=== PATIENT | female | born 1955 | race Caucasian/White ===

== ENCOUNTER → 2017-07-09 | Outpatient (CLI) | payer BC | END | disposition home or self-care (01) | LOC: C.RDSM 14:29 | PROVIDERS: ATTEND Family Medicine Sports Medicine | DX: M25.561 Pain in right knee (principal) ==

== ENCOUNTER → 2017-09-10 | Outpatient (CLI) | payer BC ==
--- NOTE | 2017-09-10 15:50 | DIAGNOSTIC IMAGING REPORT ---
RIGHT LOWER EXTREMITY VENOUS DOPPLER HISTORY: R LEG PAIN/SWELLING COMPARISON STUDY: None. FINDINGS: There is normal compressibility, flow, and augmentation within the right lower extremity deep venous system. IMPRESSION: No DVT within the right lower extremity Electronically signed by: Albaro Nichols M.D. 09/10/2017 3:49 PM Dictated Date/Time: 09/10/2017 3:49 PM
== END | disposition home or self-care (01) ==
LOC: C.ULTR 15:16
PROVIDERS: ATTEND Family Medicine Sports Medicine
DX: M79.604 Pain in right leg (principal)

== ENCOUNTER → 2017-09-17 | Outpatient (CLI) | payer BC ==
--- NOTE | 2017-09-17 15:27 | DIAGNOSTIC IMAGING REPORT ---
RIGHT KNEE MRI HISTORY: RT KNEE PAIN,SWELLING COMPARISON STUDY: Right knee 07/09/2017. TECHNIQUE: Multiplanar multisequence MRI of the right knee was performed according to standard department protocol without the use of contrast. FINDINGS: Menisci: The lateral meniscus is intact. Complex full-thickness tear seen within the posterior horn of the medial meniscus. The medial meniscus is slightly extruded from the joint space. Degeneration without tear within the body of the medial meniscus. Ligaments: The anterior and posterior cruciate ligaments are intact. The medial and lateral collateral ligaments are normal in appearance. Extensor mechanism: The quadriceps tendon and patellar ligament are intact. Articular cartilage and bone: No fracture or dislocation. Tricompartmental marginal osteophytes. Large area of full-thickness cartilage loss seen within the central weightbearing portion of the medial femoral condyle and medial tibial plateau. Focal cartilage fissure seen within the central weightbearing portion of the lateral femoral condyle. Cartilage fraying with greater than 50% cartilage thinning within the medial patellar facet and median ridge of the patella. Subchondral marrow edema within the medial femoral condyle due to the long-standing degenerative change. Joint effusion: Moderate. Soft tissues: Anterior subcutaneous edema within the knee. There is also edema adjacent to the vastus medialis muscle. IMPRESSION: 1. Focal defect/complex tear within the posterior horn of the medial meniscus. 2. Tricompartmental osteoarthritis as described above most pronounced within the medial compartment where there is full-thickness cartilage loss. 3. Moderate joint effusion. 4. No fracture or dislocation. Electronically signed by: Albaro Nichols M.D. 09/17/2017 3:25 PM Dictated Date/Time: 09/17/2017 3:19 PM
== END | disposition home or self-care (01) ==
LOC: C.MRI 14:18
PROVIDERS: ATTEND Family Medicine Sports Medicine
DX: S83.241A Other tear of medial meniscus, current injury, right knee, initial encounter (principal); X58.XXXA Exposure to other specified factors, initial encounter; M17.11 Unilateral primary osteoarthritis, right knee

== ENCOUNTER 2020-11-11 08:42 | Observation (INO) ==
--- NOTE | 2020-10-18 14:08 | PAT Medication Instructions ---
Medication Instructions Date of Service October 18, 2020 Home Medications atorvastatin 20 mg PO HS esomeprazole magnesium 20 mg PO QAM fluoxetine 80 mg PO QAM levothyroxine 50 mcg PO QAM losartan 100 mg PO QAM meloxicam 15 mg PO HS multivitamin 1 tab PO QAM triamterene-hydrochlorothiazid 1 tab PO HS ASK your surgeon for instructions meloxicam 15 mg PO HS DO NOT take the morning of surgery losartan 100 mg PO QAM multivitamin 1 tab PO QAM Take morning of surgery With a small sip of water, OTHERWISE NOTHING TO EAT OR DRINK AFTER MIDNIGHT: esomeprazole magnesium 20 mg PO QAM fluoxetine 80 mg PO QAM levothyroxine 50 mcg PO QAM Take evening before surgery atorvastatin 20 mg PO HS triamterene-hydrochlorothiazid 1 tab PO HS Other Notes If you have any questions please call us at [phone] or [phone] or [phone] or [phone]
--- NOTE | 2020-10-19 15:57 | Anesthesiology Consultation ---
Date of Service October 19, 2020 Assessment & Plan (1) Encounter for pre-operative examination: COVID Status: As of 10/19 assessment, patient denies travel to endemic area, known exposure/sick contacts, or symptoms of COVID19. Patient advised to adhere to social distancing guidelines, wear a mask in public and avoid large crowds or unnecessary travel in the 2 weeks leading up to surgery. Preoperative COVID19 testing to be completed prior to surgery per surgeon's arrangements. Pat ient encouraged to be extra cautious/conscientious with COVID precautions between COVID testing and surgery. Patient is vaccinated with J+J vaccine. Possibly new DM on pre-op labs (A1C 6.5%). Sent to PCP for their review, patient being seen for clearance 10/21. Chart Review Chart Review: Acceptable Risk for Surgery (pending surgeon-ordered pcp clearance 10/21) and Patient seen in Pre Admission Testing Teaching & Discussion Instructed NPO after midnight before surgery, except medications with 15 cc of water. Medication instructions provided according to the PAT guidelines. History Surgery Operation Date: 11/11/20 07:00 Proposed Procedures p Right Total Knee Arthroplasty - Hugh Coy MD Height/Weight Height: 5 ft 2 in Weight: 84.6 kg Allergies Allergy/AdvReac Type Severity Reaction Status Date / Time nickel Allergy Rash Verified 10/18/20 11:34 No Known Drug Allergies Allergy Verified 10/18/20 11:34 Medications Home Medications Medication Instructions Recorded Confirmed Last Taken atorvastatin 20 mg PO HS 10/18/20 10/18/20 Unknown esomeprazole magnesium 20 mg PO QAM 10/18/20 10/18/20 Unknown fluoxetine 80 mg PO QAM 10/18/20 10/18/20 Unknown levothyroxine 50 mcg PO QAM 10/18/20 10/18/20 Unknown losartan 100 mg PO QAM 10/18/20 10/18/20 Unknown meloxicam 15 mg PO HS 10/18/20 10/18/20 Unknown multivitamin 1 tab PO QAM 10/18/20 10/18/20 Unknown triamterene-hydrochlorothiazid 1 tab PO HS 10/18/20 10/18/20 Unknown Past Medical History Medical History (Updated 10/20/20 @ 16:58 by Js Sandoval) Anxiety and depression Cardiac murmur Pt reports heard a long time ago, no echo or unit secy. Very faint systolic murmur noted at PAT. Diabetes No reported hx, but A1C noted to be 6.5% on per-op labs. Sent to PCP for their review. GERD (gastroesophageal reflux disease) HLD (hyperlipidemia) HTN (hypertension) Hypothyroidism Osteoarthritis Sleep apnea CPAP, reports using it ~ 50% of the time Exercise / Class Metabolic Activity II 4-5 Yardwork/Stairs/Walk up hill (Denies CP or SOB with 1 FOS) Past Family History Family History Father Diabetes Other No family history of adverse response to anesthesia Past Surgical History Surgical History History of bladder surgery History of x 2 History of colonoscopy History of esophagogastroduodenoscopy (EGD) History of hysterectomy History of tooth extraction Past Anesthesia History No Hx of Anesthesia Complications and No Family Hx of Anesthesia Complications History of PONV No Hx of PONV and No Hx of Motion Sickness Social History Smoking Status: Never smoker Do You Dip or Chew Tobacco: No Hx Alcohol Use: No Hx Substance Use: No substance use type: does not use Review of Systems Pt denies any recent chest pain, shortness of breath, palpitations, cough, fever, URI, or uncontrolled acid reflux (controlled with PPI). Physical Exam Vital Signs BP: 149/77 P: 83bpm SPO2: 95% RA T: 98.5 F R: 16 ENMT Mouth: + dentures and + edentulous Thyromental Distance: > or= 3.5 Finger Breadths Mallampati Class: II Neck + short neck; neck extension not limited Respiratory normal respiratory effort, lungs clear to auscultation Cardiovascular Rate/Rhythm: regular rate and regular rhythm Heart Sounds: + murmur (<I/ systolic) Lab Results Anesthesia Preop Results Results Anesthesia Widget: WBC 5.44 K/uL (4.8-10.8) 10/19/20 Hgb 11.0 g/dL (12.0-16.0) L 10/19/20 Hct 34.7 % (37-47) L 10/19/20 Plt 184 K/uL (130-400) 10/19/20 Na 138 mmol/L (136-145) 10/19/20 K 4.5 mmol/L (3.5-5.1) 10/19/20 Cl 105 mmol/L (98-107) 10/19/20 CO2 30 mmol/L (21-32) 10/19/20 BUN 36 mg/dl (7-18) H 10/19/20 Creat 1.27 mg/dl (0.6-1.2) H 10/19/20 Glucose Level 92 mg/dl (70-99) 10/19/20 PT 10.0 Seconds (9.0-12.0) 10/19/20 INR 1.0 (0.9-1.1) 10/19/20 HA1c 6.5 % (4.5-5.6) H 10/19/20 Urine Color Yellow 10/19/20 Urine Appearance Clear (Clear) 10/19/20 Urine pH 5.5 (4.5-7.5) 10/19/20 Urine Specific [place] 1.020 (1.000-1.030) 10/19/20 Urine Protein Negative (Negative) 10/19/20 Urine Glucose (UA) Negative (Negative) 10/19/20 Urine Ketones Negative (Negative) 10/19/20 Urine Blood Negative (Negative) 10/19/20 Urine Nitrite Negative (Negative) 10/19/20 Urine Bilirubin Negative (Negative) 10/19/20 Urine Urobilinogen Negative (Negative) 10/19/20 Urine Leukocyte Esterase 1+ (Negative) H 10/19/20 Blood Type A Positive 10/19/20 Antibody Screen NEGATIVE 10/19/20 Testing Electrocardiogram Date: 10/19/20 Findings: + NSR @ (75bpm)
--- NOTE | 2020-10-20 14:30 | History & Physical Report ---
Date of Service October 20, 2020 Assessment & Plan Admission and Anticipated Discharge Date Admission Date: PRE-OP Diagnosis: Right knee osteoarthritis Planned Procedure: Right total knee arthroplasty Plan: Patient is scheduled to undergo this procedure at [facility] with Dr. Hugh Coy on November 11, 2020. Risks and complications of the procedure such as: Infection, bleeding, pain, scarring, nerve blood vessel damage, weakness, wound problems, stiffness, incomplete relief of symptoms, hardware failure, hardware loosening, wear, fracture, tendon or ligament injury, blood clots, embolism, heart attack, stroke and were explained the patient at her visit on September [address] Coy. Informed consent to perform the procedure was obtained. Patient also understands risks of proceeding with surgical invention during the COVID-19 pandemic. Currently she is asymptomatic and understands she will need to be tested 2 to 3 days prior to the surgery. We will need to obtain preoperative medical clearance from the patient's primary c are provider Angelina Locke PA-C. Patient states she has an appointment with her this coming . Patient is scheduled to meet with anesthesia at the hospital later this morning and while there she will obtain a CBC with differential complete metabolic panel PT/INR blood type and screen urinalysis, urine culture and sensitivity, hemoglobin A1c, EKG and a nasal culture for MRSA. During today's visit we reviewed the total knee arthroplasty packet. I provided the patient with orders to obtain a walker, raised toilet seat, shower chair. I advised her that she will be in a knee immobilizer for the first 2 days postoperatively. I provided her with paperwork to obtain a handicap placard for her vehicle. We discussed the lectures offered by [facility] in regards to joint replacement surgery that are held via zoom. We talked about antibiotic use prior to dental procedures after joint placement surgery. I advised the patient she will be discharged from the hospital on an opioid analgesic, and anti-inflammatory and we will have her take baby aspirin twice daily for blood clot prevention. She states that she will most likely do in-home physical therapy for the first 2 weeks postoperatively. Patient is scheduled to follow-up with me on November 24 at 11:15 AM for 2-week postoperative follow-up. Patient also advised me that prior to her departure from the clinic that she has a nickel allergy so we will have to make accommodations to use [employer] total knee hardware on this patient. Patient verbalized understanding of all information provided during today's visit. She thanks for the care that she received. If she has questions or concerns prior to her surgery, she will contact clinic. History of Present Illness Chief Complaint: Chief Complaint: Right knee pain Primary Care Provider: Angelina Locke PA-C History of Present Illness (including history relevant to procedure): This 65-year-old female presents the clinic today for preoperative history and physical. Patient was actually had her on the schedule for a knee replacement back in April of 2019. After the coronavirus pandemic onset, however, this was canceled and she has been essentially managing on her own since then. She has been taking meloxicam once a day. She says this helps. However, the knee has progressively worsened. She has continued to wear knee braces on both knees. She feels the pain diffusely in the right knee and more localized to the medial aspect of the left knee. She says the right knee is worse than the left. She is interested in now having her right knee replaced. Review Of Systems: A 14 point review of systems performed and is unremarkable except for those things stated in the HPI and past medical history. Past Medical History: Problems: Pre-op exam Left knee pain Loss of weight Fatigue Pes anserine bursitis Osteoarthritis of right knee Tear of medial meniscus of knee Effusion, right knee Pain and swelling of right lower leg Knee pain, right Pain of right patellofemoral joint Rectocele Cystourethrocele Vitamin D deficiency Peripheral edema Dyspareunia in female Urge incontinence of urine Restless leg syndrome JHOAN on CPAP Anxiety and depression GERD (gastroesophageal reflux disease) Hypothyroidism Benign hypertension Procedure History Procedure Procedure Date Comments H/O: hysterectomy Cystopexy Total hysterectomy Mammogram 11/08/2018 - IMPRESSION: ACR BI-RADS CATEGORY 2: BENIGNThere is no mammographic evidence of malignancy. Prior outside mammograms are currently being requessted and if obtained they will be reviewed, compared to te current exam to assess for any more subtle changes, and an addendum will be made to this report. Otherwise, a 1 year screening mammogram is recommended.The patient will receive written notification of the results. [facility]. Entire examined colon is normal2. No specimens collectedRepeat in 10 years [facility] right [facility] Focal defect/complex tear within the posterior horn of the medial meniscus2. Tricompartmental osteoarthritis as described above most pronounced within the medial compartment where there is full-thickness cartilage loss3. Moderate joint effusion4. No fracture or dislocation [facility]ous [facility]ppler [facility] No DVT within the right lower extremity Full sleep study 05/11/2011 - 1. Improved sleep architecture with CPAP.2. Resolved sleep disorder breathingg with optimal pressure judged to be 9cm using a [email or web address] FX "for her" mask.Recommendations:1. CPAP at 9cm, mask noted above. Allergies and Sensitivities: Nickel Social history: Completely unremarkable Family history: Hypertension and type 2 diabetes Current Home Meds: (Last Updated 10/20 13:47) FLUoxetine (FLUoxetine 40 mg oral capsule) 80 mg PO Daily aspirin (aspirin 81 mg oral tablet) 81 mg PO Daily atorvastatin (atorvastatin 20 mg oral tablet) 20 mg PO qhs cholecalciferol (Vitamin D3) ciprofloxacin (Cipro 500 mg oral tablet) 500 mg PO q12h esomeprazole (esomeprazole 20 mg oral delayed release capsule) 20 mg PO Daily hydroCHLOROthiazide-triamterene (hydroCHLOROthiazide-triamterene 25 mg-37.5 mg oral capsule) 1 cap PO Daily levothyroxine (levothyroxine 50 mcg (0.05 mg) oral tablet) 50 mcg PO Daily losartan (losartan 100 mg oral tablet) 100 mg PO Daily meloxicam (meloxicam 15 mg oral tablet) 15 mg PO Daily multivitamin with minerals (Calcium, Magnesium and Zinc oral tablet) 1 tab PO Daily zoster vaccine, inactivated (Shingrix intramuscular injection) 0.5 mL IM ONCE Allergies Allergy/AdvReac Type Severity Reaction Status Date / Time nickel Allergy Rash Verified 10/18/20 11:34 No Known Drug Allergies Allergy Verified 10/18/20 11:34 Home Medications Medication Instructions Recorded Confirmed Type atorvastatin 20 mg PO HS 10/18/20 10/18/20 History esomeprazole magnesium 20 mg PO QAM 10/18/20 10/18/20 History fluoxetine 80 mg PO QAM 10/18/20 10/18/20 History levothyroxine 50 mcg PO QAM 10/18/20 10/18/20 History losartan 100 mg PO QAM 10/18/20 10/18/20 History meloxicam 15 mg PO HS 10/18/20 10/18/20 History multivitamin 1 tab PO QAM 10/18/20 10/18/20 History triamterene-hydrochlorothiazid 1 tab PO HS 10/18/20 10/18/20 History Past Med/Surg History Medical History Anxiety and depression Cardiac murmur Pt reports heard a long time ago, 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 Very faint systolic murmur noted at PAT. GERD (gastroesophageal reflux disease) HLD (hyperlipidemia) HTN (hypertension) Hypothyroidism Osteoarthritis Sleep apnea CPAP, reports using it ~ 50% of the time Surgical History History of bladder surgery History of x 2 History of colonoscopy History of esophagogastroduodenoscopy (EGD) History of hysterectomy History of tooth extraction Family History Father Diabetes Other No family history of adverse response to anesthesia Social History Smoking Status: Never smoker Second Hand Exposure: Yes (hx); Hx Alcohol Use: No Hx Substance Use: No Preferred Language: Taiwanese Communication Ability: Effective City Designer Required: No Beliefs That Will Affect Care: None Current Living Situation: Spouse Feels Safe at Home: Yes Assistive Devices: Denture - Upper, Denture - Lower and Glasses Review of Systems All systems reviewed & are unremarkable except as noted in HPI & below Physical Exam Physical Exam: Physical Exam: (relevant to the procedure, including heart and lung evaluation) General: Alert and oriented x3 with proper grooming and hygiene Eyes: Pupils are equal and reactive to light with accommodation. Extraocular movements are intact Throat: Deferred due to COVID-19 precautions Cardiac: Regular rate and rhythm with no murmurs or gallops appreciated Lungs: Clear to auscultation throughout with no wheezing, rales or rhonchi Abdomen: Nonobese, nondistended, nontender with NABS Extremities: Right knee exam shows no skin lesions. The range of motion shows a flexion contracture of about 10 degrees. She flexes up to 120 degrees on the right. On the left knee, her range of motion is from 0 to 140 degrees. She is tender along the medial joint lines on both knees. On the right knee, she has lateral joint line tenderness as well. No lateral joint line tenderness on the left. No effusion on either knee. She is neurovascularly intact bilaterally. Neuro: Cranial nerves II through XII are intact no motor or sensory deficit Skin: Normal in appearance with no open skin areas or discharge Results & Data ([facility]) Diagnostic Findings Studies (relevant to the procedure): X-rays done include bilateral PA flex, Merchant, and lateral views and a standing long leg alignment film. These demonstrate the patient to be in varus malalignment with the weightbearing axis passing through the medial aspect of the medial tibial plateau on the right. On the left knee, she has an anatomic varus alignment with the weightbearing axis passing through the medial tibial spine. She has [id number] arthritis in the right medial tibial femoral joint. Tricompartmental osteophyte formation is noted. On the left knee, there has been interval loss of her medial joint space, but she is not yet [id number].
[~2020-11-11 08:42] MED LIST: ACETAMINOPHEN 500 MG TAB PO SCH; BUPIVACAINE 0.5 % 5 MG/1 ML PF 10ML VIAL ONE; CeleBREX 200 MG CAP PO SCH; EPINEPHrine INJ 1 MG/ML AMP ONE; FAMOTIDINE 20 MG TAB PO SCH; LR 60ML/HR IV SCH; METOCLOPRAMIDE HCL 10 MG TABLET PO SCH; MIDAZOLAM HCL 1 MG/ML 2ML VIAL ONE; ROPIVACAINE 0.5% 5 MG/ML 30 ML VIAL ONE; ROPIVACAINE 0.5% HCL/PF 150 MG, BUPIVACAINE 0.75% MPF 20 ML, EPINEPHrine 0.15 MG, Ketor... INFIL SCH; Scopolamine 1 MG TDSY TD SCH; TRANEXAMIC ACID 1,000 MG **IV Intra-op IV SCH; TRANEXAMIC ACID 1,000 MG **IV Pre-op IV SCH; ceFAZolin 2000MG 2,000 MG/15 ML SYR IV SCH; dexAMETHasone 4 MG TAB PO SCH; fentaNYL citrate 100 MCG/2 ML VIAL ONE; traMADol HCL 50 MG TABLET PO SCH
[2020-11-11 09:23] LABS: Appearance Urine Clear (Clear); Bacteria Urine Automated Negative (Negative); Bilirubin Urine Negative (Negative); Blood Urine Negative (Negative); Color Urine Yellow; Epithelial Cell Urine Auto >30 /lpf (0-5); Glucose Urine UA Negative (Negative); Ketones Urine Negative (Negative); Leukocyte Esterase Urine Trace (Negative); Nitrite Urine Negative (Negative); Protein Urine Negative (Negative); RBC Urine Automated 0-4 /hpf (0-4); Specific Gravity Urine 1.023 (1.000-1.030); Urobilinogen Urine Negative (Negative); pH Urine 5.5 (4.5-7.5)
[2020-11-11] MEDS ORDERED: ePHEDrine sulfate 50 MG/ML AMP IV PRN (09:47)
[2020-11-11] MEDS ORDERED: LABETALOL HCL IV 5 MG/ML 20ML IV PRN (09:47)
[2020-11-11] MEDS ORDERED: PHENYLEPHRINE 100MCG/ML 5ML SYR IV PRN (09:47)
[2020-11-11] MEDS ORDERED: ATROPINE SULFATE 0.1 MG/ML 10ML SYR IV PRN (09:47)
[2020-11-11] MEDS ORDERED: ONDANSETRON INJ 2 MG/ML 2 ML VIAL IV PRN ×2 (09:47→13:54)
[2020-11-11] MEDS ORDERED: fentaNYL citrate 100 MCG/2 ML VIAL IV PRN (09:47)
[2020-11-11] MEDS ORDERED: HYDROmorphone INJ 1 MG/ML SYRINGE IV PRN (09:47)
[2020-11-11] MEDS: LR 500ML BOLUS, THEN 15ML/HR IV SCH (10:10)
[2020-11-11] MEDS ORDERED: LIDOCAINE 2% 2 ML VIAL/AMP(20MG/ML) INFIL ONE (10:43)
[2020-11-11] MEDS ORDERED: ONDANSETRON INJ 2 MG/ML 2 ML VIAL ONE (10:43)
[2020-11-11] MEDS ORDERED: PROPOFOL IV EMULSION 10 MG/ML 100 ML VIAL IV ONE (10:43)
[2020-11-11] MEDS ORDERED: PROPOFOL IV EMULSION 10 MG/ML 20 ML VIAL IV ONE ×2 (10:48→13:08)
--- NOTE | 2020-11-11 11:15 | History & Physical Bridge Note ---
Date of Service November 11, 2020 History & Physical Bridge Note I have examined the patient, reviewed the History & Physical and in the interval since the performance of the History & Physical I have noted the following changes of clinical significance: Patient's pre-op Urine specimen grew Klebsiella. She was treated with Ciprofloxacin. Repeat UA on 11/09 grew E coli, which was likely a contaminant, but she was treated with Bactrim. Another UA was done this morning and showed no bacteria and 1-5 WBC per high power field. Patient has not had any urinary frequency, pain, or any urinary symptoms whatsoever this whole time. I explained that I think it is reasonable to proceed with surgery at this point. Also explained that the other option would be to reschedule her surgery at a later date. Patient understands there may be a slightly increased risk of post- operative infection due to her recent UTI if we do her surgery today. Patient would like to proceed with surgery. Otherwise, no changes noted
[2020-11-11] MEDS ORDERED: ORTHO JOINT ANESTHETIC ONE (11:32)
[2020-11-11] MEDS ORDERED: PHENYLEPHRINE 100MCG/ML 5ML SYR ONE (13:16)
[2020-11-11] MEDS ORDERED: METOCLOPRAMIDE HCL INJ 5 MG/ML 2 ML VIAL IV PRN (13:54)
[2020-11-11] MEDS ORDERED: oxyCODONE HCL IR 5 MG TAB (IMMEDIATE RELEASE) PO PRN (13:54)
[2020-11-11] MEDS ORDERED: ALUMINUM/MAGNESIUM SUSP 30 ML UDC PO PRN (13:54)
[2020-11-11] MEDS ORDERED: MAGNESIUM HYDROXIDE SUSP 30 ML UDC PO PRN (13:54)
[2020-11-11] MEDS ORDERED: bisacodyL 10 MG SUPP PR PRN (13:54)
[2020-11-11] MEDS ORDERED: diphenhydrAMINE 50 MG/ML VIAL IV PRN (13:54)
[2020-11-11] MEDS ORDERED: HYDROmorphone INJ 0.5 MG/0.5 ML SYR IV PRN (13:54)
[2020-11-11] MEDS ORDERED: NALOXONE HCL 0.4 MG/1 ML VIAL/CARP IV PRN (13:54)
--- NOTE | 2020-11-11 13:54 | Operative Report ---
Post Operative Report Pre & Post Diagnosis Operation Date: 11/11/20 11:40 Pre-Op Diagnosis: Right Knee Osteoarthritis Post-Op Diagnosis: Right Knee Osteoarthritis I identified the patient and participated in the time-out.: Yes Procedure Operation Date: 11/11/20 11:40 Actual Procedures p Right Total Knee Arthroplasty(Right) - Hugh Coy MD Surgeon Hugh Coy MD Reservoir Engineering Advisor Joe Flores MD; Ayush Meza PA-C Estimated Blood Loss 100 Findings Consistent with Post-Op Diagnosis Severe Right knee osteoarthritis Specimens none Complications none Description of Procedure I was present during the entire procedure assisting with positioning, prepping, draping, wound retraction, wound closure, dressing and immobilizer placement. Fellow also present. I served as an extra set of hand during the case. Please see Dr. Coy procedure note for specifics. I attest to the content of the Intraoperative Record and any orders documented therein. Any exceptions are noted below.
--- NOTE | 2020-11-11 14:10 | Operative Report ---
Post Operative Report Pre & Post Diagnosis Operation Date: 11/11/20 11:40 Pre-Op Diagnosis: Right Knee Osteoarthritis, genu varum, subchondral cyst medial femoral condyle Post-Op Diagnosis: Right Knee Osteoarthritis, genu varum, subchondral cyst medial femoral condyle I identified the patient and participated in the time-out.: Yes Procedure Operation Date: 11/11/20 11:40 Actual Procedures p Right Total Knee Arthroplasty(Right) - Hugh Coy MD Surgeon Hugh Coy MD Relocation Manager Joe Flores MD; Ayush Meza PA-C Estimated Blood Loss 100 Findings Consistent with Post-Op Diagnosis Specimens Bone and soft tissue contents of the right knee Anesthesia Type Spinal MAC Complications None Indications * 65-year-old female with right knee arthritis refractory to conservative management. X-rays demonstrate genu varum alignment, joint space narrowing subchondral sclerosis and a subchondral cyst in her medial femoral condyle. I had a long discussion with her about the risks and benefits of surgery, alternatives to surgery, and expected outcomes. After reviewing all these she elected to proceed with surgery. All questions were answered. Informed consent was signed. Description of Procedure Patient was identified in the preoperative holding area where the surgical site, right knee, was marked. Patient was brought back to the operating room, placed on the operating room table, and IV sedation was administered. All bony prominences were padded. Perioperative antibiotics and tranexamic acid were administered. Exam under anesthesia was performed. This demonstrated patient to have a 15 degree flexion contracture. Range of motion was from 15 up to 110 degrees. She had genu varum alignment with mild pseudolaxity of the MCL. The surgical site was prepped and draped in the normal sterile fashion. Prior to incision a multidisciplinary timeout was called. All in the room were in agreement. We began by exsanguinating the limb with an Esmarch bandage. Tourniquet was inflated to 250 mmHg. A 14 cm long incision was made over the anterior aspect of the knee. I dissected through the subcutaneous tissues to the level of the fascia. Full-thickness flaps are raised above the fascia. A median parapatellar arthrotomy was made. Half the fat pad was excised. A medial release was performed with Bovie electrocautery on the proximal tibia. Synovitis in the suprapatellar pouch was removed. The patella was then everted and held with 2 towel clips. The thickness of the patella was measured at 21 mm. Patellar resection was performed. Caliper showed the patella thickness now to be 13 mm. A size 32 trial was placed and had a great fit. The 3 drill holes were placed then the trial button was placed. The patellar thickness was now 22 mm which I was very happy with. The patellar trial was then removed, the patella was everted and the knee was flexed up. Osteophytes were removed from the femoral condyles and intercondylar notch. The ACL and PCL were excised. Intramedullary drill guide was drilled into the femur. Distal femoral cutting guide was placed set at 5 degrees of valgus. Cutting guide was pinned in place at 0. Because of her flexion contracture I moved it back to take 2 more millimeters off the distal femur. The distal femoral resection was made without difficulty. Once the bone was removed we could visualize a subchondral cyst within the medial femoral condyle measuring approximately 8 mm in diameter. The tibia was then exposed. The lateral meniscus was sharply excised. The tibial cutting jig was positioned to resect 9 mm off the less involved lateral compartment. The jig was then pinned in position and the tibial cut was made. We then brought the knee into full extension. Lamina spreaders were placed. The medial meniscus was excised. The extension block was then placed for 11 mm thickness poly. This gave us full extension and excellent stability to varus and valgus. Next the knee was flexed up and the femoral sizing guide was placed. The patient sized to a size 4 femur. The 3 degree external rotation jig was used to create 2 holes in the distal femur. The jig was removed and the holes were compared to Whitesides axis and the epicondylar axis. We were happy with the rotation, and therefore placed a size four 5-in-1 cutting jig. We had to translate this slightly anteriorly so we would not notch the femur then pinned it into position. Our 5 cuts were then made. The cutting jig was removed. The 11 mm flexion block was then placed with the knee held at 90 degrees. There was good stability to varus and valgus at 90 degrees with no gapping laterally, and only slight gapping medially secondary to the MCL release. Next the box cutting jig was placed on the distal femur. The box cut was made and the femoral trial was impacted into position. The tibia was sized to a 3 for a fixed bearing component. The tibial tray was positioned in external rotation on the cut tibial surface and the knee was brought through a full range of motion, and the position of the tray was marked with electrocautery on the tibia. We then pinned the tibial tray into position and used the intramedullary drill followed by the keel punch. The trial polyethylene was then placed and the knee was brought through a full range of motion. I was very happy with the stability through a full range of motion, and the patellar tracking was excellent. Next the trial components were removed. I then injected the posterior capsule and periosteum with the periarticular injection cocktail. The bone cuts were then irrigated and dried while the cement was mixed on the back table. The femoral component was cemented on first. Excess cement was removed. A lap sponge was placed over the femoral component for protection, then the tibia was subluxated anteriorly. The tibial component was then cemented in place. Again excess cement was removed. The size 34 tibial 11 mm polyethylene insert was then placed and the knee was brought into full extension and held there until the cement cured. The patella was cemented and clamped. Dilute Betadine solution was then allowed to soak in the knee while the cement cured. Once the cement was fully cured, the tourniquet was let down and the wound was irrigated out with copious amounts normal saline. Meticulous hemostasis was ensured. The knee was brought through a full range of motion and we are very happy with the patella tracking and the stability. We then began to close. Interrupted 0 Vicryl suture was used to repair the patellar retinaculum in [id number] fashion. The quadriceps and patellar tendons were run with #1 Ethibond. The deep dermal layer was closed with interrupted 2-0 Vicryl. Dermabond and Zipline was used for the skin. A compressive dressing was placed. Patient's sedation was lifted and was transferred to recovery room in stable condition. Summary of implants: [employer] Oxinium size 4 posterior Stabilized Cemented Femur Size 3 tibial tray 11 mm thickness tibial polyethylene insert for 3/4 tibial tray Oval dome patella, size 32 2 batches of simplex low viscosity bone cement Postoperative course: Patient will be admitted to the floor for pain control and monitoring. Weightbearing as tolerated with no knee range of motion for 48 hours. Aspirin for DVT prophylaxis. I attest to the content of the Intraoperative Record and any orders documented therein. Any exceptions are noted below.
--- NOTE | 2020-11-11 14:18 | XRay Report ---
XR knee RT 1 or 2V routine HISTORY: 65 years-old Female Surgical Post Op right knee total joint arthroplasty COMPARISON: 10/19/2020 TECHNIQUE: 2 views of the right knee FINDINGS: Right knee total arthroplasty and patella resurfacing. Expected postoperative soft tissue swelling an d deep tissue air. Overlying gauze material. No acute fracture, retained foreign body or malalignment . Mild cortical thickening of the proximal fibula may reflect a healed fracture. IMPRESSION: Right knee total joint arthroplasty with expected postoperative changes. ACT 112: Negative or not required by law. The above report was generated using voice recognition software. It may contain grammatical, syntax o r spelling errors. Electronically signed by: Johann Martínez M.D. 11/11/2020 2:17 PM
--- NOTE | 2020-11-11 14:37 | Anesthesiology Progress Note ---
Date of Service November 11, 2020 Anesthesia Post Procedure Vital Signs Vital Signs: Temp Pulse Pulse Resp BP Pulse Ox 11/11/20 14:30 87 12 125/66 96 11/11/20 14:20 36.9 C 85 14 124/64 96 11/11/20 14:10 85 20 138/71 97 11/11/20 14:00 84 16 127/65 100 11/11/20 13:52 36.6 C 90 18 117/65 100 11/11/20 10:44 96 H 18 164/82 H 95 11/11/20 09:32 36.9 C 94 H 20 162/90 H 95 Transfer of Care Handoff Completed per policy Notes Mental Status: alert / awake / arousable Patient Amnestic to Procedure: Yes Nausea / Vomiting: adequately controlled Pain: adequately controlled Airway Patency, RR, SpO2: stable & adequate BP & HR: stable & adequate Hydration State: stable & adequate Neuraxial Anesthesia: was administered and sensory block is resolving Anesthetic Complications: no major complications apparent and Pt Satisfied with anesthetic care
[2020-11-11] MEDS: SODIUM CHLORIDE 0.9% 1000ML 1,000 ML IV SCH (15:22)
[2020-11-11] MEDS: ACETAMINOPHEN 500 MG TAB PO SCH ×2 (16:24→21:10)
[2020-11-11] MEDS: Scopolamine CHECK PATCH PLACEMENT SCH ×2 (16:25→21:11)
[2020-11-11] MEDS: KETOROLAC TROMETHAMINE 15 MG/ML VIAL IV SCH ×2 (16:25→21:10)
[2020-11-11] MEDS: ceFAZolin 2000MG 2,000 MG/15 ML SYR IV SCH (18:32)
[2020-11-11] MEDS ORDERED: TRANEXAMIC ACID / 0.7% NACL 1,000 MG/100 ML BAG IV SCH (20:00)
[2020-11-11] MEDS: DOCUSATE SODIUM 100 MG CAP PO SCH (20:02)
[2020-11-11] MEDS ORDERED: ASPIRIN 81 MG ECTAB PO SCH (21:00)
[2020-11-11] MEDS ORDERED: MELOXICAM 7.5 MG TAB PO SCH (21:00)
[2020-11-11] MEDS ORDERED: ATORVASTATIN 20 MG TAB PO SCH (21:00)
[2020-11-11] MEDS ORDERED: SENNA 8.6 MG TAB PO SCH (21:00)
[2020-11-11] MEDS ORDERED: TRIAMTERENE/HCTZ 37.5/25MG TAB PO SCH (21:00)
[2020-11-12] MEDS: SODIUM CHLORIDE 0.9% 1000ML 1,000 ML IV SCH (02:09)
[2020-11-12] MEDS: KETOROLAC TROMETHAMINE 15 MG/ML VIAL IV SCH ×2 (03:24→10:02)
[2020-11-12] MEDS: ceFAZolin 2000MG 2,000 MG/15 ML SYR IV SCH (03:25)
[2020-11-12] MEDS: LR 500ML BOLUS, THEN 15ML/HR IV SCH (05:31)
[2020-11-12] MEDS: ACETAMINOPHEN 500 MG TAB PO SCH ×2 (05:33→13:10)
[2020-11-12] MEDS ORDERED: LEVOTHYROXINE SODIUM 50 MCG TABLET PO SCH (06:30)
[2020-11-12] MEDS ORDERED: dexAMETHasone 4 MG TAB PO SCH (08:00)
[2020-11-12 08:12] LABS: Mean Corpuscular Hemoglobin 28.5 pg (25-34); Mean Corpuscular Hgb Conc 32.1 g/dL (32-36); Mean Corpuscular Volume 88.6 fL (80-100); Mean Platelet Volume 10.5 fL (7.4-10.4); Platelet Count 160 K/uL (130-400); RDW Coefficient of Variation 13.6 % (11.5-14.5); RDW Standard Deviation 44.3 fL (36.4-46.3); Red Blood Count 3.16 M/uL (4.2-5.4); White Blood Count 9.07 K/uL (4.8-10.8)
[2020-11-12] MEDS: DOCUSATE SODIUM 100 MG CAP PO SCH (08:21)
[2020-11-12] MEDS: Scopolamine CHECK PATCH PLACEMENT SCH (08:21)
[2020-11-12 08:51] LABS: BUN Creatinine Ratio 21.4 (10-20); Calcium 7.9 mg/dl (8.5-10.1); Creatinine Clr Calc Pharmacy 28.6 ml/min; Est GFR (African American) 30.6 ml/min; Est GFR (Non-African American) 26.4 ml/min; Potassium 4.1 mmol/L (3.5-5.1)
[2020-11-12] MEDS ORDERED: ASPIRIN 81 MG ECTAB PO SCH (09:00)
[2020-11-12] MEDS ORDERED: LOSARTAN POTASSIUM 50 MG TAB PO SCH (09:00)
[2020-11-12] MEDS ORDERED: PANTOprazole 40 MG TAB PO SCH (09:00)
[2020-11-12] MEDS ORDERED: FLUoxetine HCL 20 MG CAP PO SCH (09:00)
[2020-11-12] MEDS ORDERED: MULTIVITAMIN TAB PO SCH ×2 (09:00)
--- NOTE | 2020-11-12 09:49 | Orthopedic Progress Note ---
Date of Service November 12, 2020 Assessment & Plan (1) S/P total knee arthroplasty: Plan: Weightbearing as tolerated with knee immobilizer use for the first 48 hours postoperatively and walker assistance Pain control with p.o. medication Ice with EZ wrap Keep Silverlon dressing in place DVT prophylaxis with aspirin and YASMINE stockings Plan on discharge home today with in-home physical therapy for the first 2 weeks postoperatively Follow up with [facility] orthopedics as previously scheduled With questions contact our clinic at [phone] Admission and Anticipated Discharge Date Admission Date: November 11, 2020 Subjective This 65-year-old female is day 1 status post right total knee arthroplasty.Patient states that she is doing very well and her pain is easily controlled with p.o. pain medication. Patient denies chest pain, shortness of breath, fever, chills, sweats, lethargy, numbness or tingling in her lower extremity.She states she has been able to transition from her bed to the bathroom.She states that she is ready to be discharged home with in-home physical therapy for the first 2 weeks postoperatively. Review of Systems Review of Systems: Unremarkable except for those things stated in the HPI Physical Exam Physical Exam: Right knee:After dressing was removed from the patient's right knee. Silverlon is intact with no drainage. Patient has some mild edema but no erythema, ecchymosis, warmth or palpable deformity. Knee range of motion is from 0 degrees of extension to 80 degrees of flexion actively. Patient is able to perform a straight leg raise test. She is able to actively dorsi and plantarflex her foot.Patient's calf soft and supple nontender to palpation. Quad strength is 3 out of 5. She is neurovascular intact in the right lower extremity. Peripheral pulses are 2+. Capillary fill is less than 2 seconds. Results & Data ([facility]) Vital Signs (Past 12 Hours) Vital Signs Temp Pulse Resp BP BP Pulse Ox 11/12/20 07:25 36.5 C 80 16 115/64 99 11/12/20 01:32 36.5 C 73 16 115/56 L 94 11/11/20 22:29 36.6 C 82 16 126/69 97 Laboratory Results 11/12/20 11/12/20 11/11/20 Range/Units 07:40 07:40 13:56 WBC 9.07 (4.8-10.8) K/uL RBC 3.16 L (4.2-5.4) M/uL Hgb 9.0 L (12.0-16.0) g/dL Hct 28.0 L (37-47) % MCV 88.6 (80-100) fL MCH 28.5 (25-34) pg MCHC 32.1 (32-36) g/dL RDW Std Deviation 44.3 (36.4-46.3) fL RDW Coeff of Jaison 13.6 (11.5-14.5) % Plt Count 160 (130-400) K/uL MPV 10.5 H (7.4-10.4) fL Sodium 135 L (136-145) mmol/L Potassium 4.1 (3.5-5.1) mmol/L Chloride 104 (98-107) mmol/L Carbon Dioxide 24 (21-32) mmol/L Anion Gap 6.0 (3-11) BUN 42 H (7-18) mg/dl Creatinine 1.96 H (0.6-1.2) mg/dl Est Cr Clr Drug Dosing 28.6 ml/min Est GFR ( Amer) 30.6 ml/min Est GFR (Non-Af Amer) 26.4 ml/min BUN/Creatinine Ratio 21.4 H (10-20) Glucose 97 (70-99) mg/dl POC Glucose 147 H (70-99) mg/dl Calcium 7.9 L (8.5-10.1) mg/dl SARS-CoV-2, RNA, NAAT (NEGATIVE) 11/11/20 11/11/20 Range/Units 09:36 09:30 WBC (4.8-10.8) K/uL RBC (4.2-5.4) M/uL Hgb (12.0-16.0) g/dL Hct (37-47) % MCV (80-100) fL MCH (25-34) pg MCHC (32-36) g/dL RDW Std Deviation (36.4-46.3) fL RDW Coeff of Jaison (11.5-14.5) % Plt Count (130-400) K/uL MPV (7.4-10.4) fL Sodium (136-145) mmol/L Potassium (3.5-5.1) mmol/L Chloride (98-107) mmol/L Carbon Dioxide (21-32) mmol/L Anion Gap (3-11) BUN (7-18) mg/dl Creatinine (0.6-1.2) mg/dl Est Cr Clr Drug Dosing ml/min Est GFR ( Amer) ml/min Est GFR (Non-Af Amer) ml/min BUN/Creatinine Ratio (10-20) Glucose (70-99) mg/dl POC Glucose 113 H (70-99) mg/dl Calcium (8.5-10.1) mg/dl SARS-CoV-2, RNA, NAAT NEGATIVE (NEGATIVE)
--- NOTE | 2020-11-12 09:56 | Discharge Summary ---
Date of Service November 12, 2020 Admission HPI Per Admitting Provider History of Present Illness (including history relevant to procedure): This 65-year-old female presents the clinic today for preoperative history and physical. Patient was actually had her on the schedule for a knee replacement back in April of 2019. After the coronavirus pandemic onset, however, this was canceled and she has been essentially managing on her own since then. She has been taking meloxicam once a day. She says this helps. However, the knee has progressively worsened. She has continued to wear knee braces on both knees. She feels the pain diffusely in the right knee and more localized to the medial aspect of the left knee. She says the right knee is worse than the left. She is interested in now having her right knee replaced. Review Of Systems: A 14 point review of systems performed and is unremarkable except for those things stated in the HPI and past medical history. Past Medical History: Problems: Pre-op exam Left knee pain Loss of weight Fatigue Pes anserine bursitis Osteoarthritis of right knee Tear of medial meniscus of knee Effusion, right knee Pain and swelling of right lower leg Knee pain, right Pain of right patellofemoral joint Rectocele Cystourethrocele Vitamin D deficiency Peripheral edema Dyspareunia in female Urge incontinence of urine Restless leg syndrome JHOAN on CPAP Anxiety and depression GERD (gastroesophageal reflux disease) Hypothyroidism Benign hypertension Procedure History Procedure Procedure Date Comments H/O: hysterectomy Cystopexy Total hysterectomy Mammogram 11/08/2018 - IMPRESSION: ACR BI-RADS CATEGORY 2: BENIGNThere is no mammographic evidence of malignancy. Prior outside mammograms are currently being requessted and if obtained they will be reviewed, compared to te current exam to assess for any more subtle changes, and an addendum will be made to this report. Otherwise, a 1 year screening mammogram is recommended.The patient will receive written notification of the results. [facility] Entire examined colon is normal2. No specimens collectedRepeat in 10 years [facility] right [facility]/complex tear within the posterior horn of the medial meniscus2. Tricompartmental osteoarthritis as described above most pronounced within the medial compartment where there is full-thickness cartilage loss3. Moderate joint effusion4. No fracture or dislocation [facility]ous [facility] No DVT within the right lower extremity Full sleep study 05/11/2011 - 1. Improved sleep architecture with CPAP.2. Resolved sleep disorder breathingg with optimal pressure judged to be 9cm using a ResMEd Mirage FX "for her" mask.Recommendations:1. CPAP at 9cm, mask noted above. Allergies and Sensitivities: Nickel Social history: Completely unremarkable Family history: Hypertension and type 2 diabetes Current Home Meds: (Last Updated 10/20 13:47) FLUoxetine (FLUoxetine 40 mg oral capsule) 80 mg PO Daily aspirin (aspirin 81 mg oral tablet) 81 mg PO Daily atorvastatin (atorvastatin 20 mg oral tablet) 20 mg PO qhs cholecalciferol (Vitamin D3) ciprofloxacin (Cipro 500 mg oral tablet) 500 mg PO q12h esomeprazole (esomeprazole 20 mg oral delayed release capsule) 20 mg PO Daily hydroCHLOROthiazide-triamterene (hydroCHLOROthiazide-triamterene 25 mg-37.5 mg oral capsule) 1 cap PO Daily levothyroxine (levothyroxine 50 mcg (0.05 mg) oral tablet) 50 mcg PO Daily losartan (losartan 100 mg oral tablet) 100 mg PO Daily meloxicam (meloxicam 15 mg oral tablet) 15 mg PO Daily multivitamin with minerals (Calcium, Magnesium and Zinc oral tablet) 1 tab PO Daily zoster vaccine, inactivated (Shingrix intramuscular injection) 0.5 mL IM ONCE Admission Exam Per Admitting Provider Physical Exam: (relevant to the procedure, including heart and lung evaluation) General: Alert and oriented x3 with proper grooming and hygiene Eyes: Pupils are equal and reactive to light with accommodation. Extraocular movements are intact Throat: Deferred due to COVID-19 precautions Cardiac: Regular rate and rhythm with no murmurs or gallops appreciated Lungs: Clear to auscultation throughout with no wheezing, rales or rhonchi Abdomen: Nonobese, nondistended, nontender with NABS Extremities: Right knee exam shows no skin lesions. The range of motion shows a flexion contracture of about 10 degrees. She flexes up to 120 degrees on the right. On the left knee, her range of motion is from 0 to 140 degrees. She is tender along the medial joint lines on both knees. On the right knee, she has lateral joint line tenderness as well. No lateral joint line tenderness on the left. No effusion on either knee. She is neurovascularly intact bilaterally. Neuro: Cranial nerves II through XII are intact no motor or sensory deficit Skin: Normal in appearance with no open skin areas or discharge Principal Diagnosis Right knee osteoarthritis Discharge Exam Right knee:After dressing was removed from the patient's right knee. Silverlon is intact with no drainage. Patient has some mild edema but no erythema, ecchymosis, warmth or palpable deformity. Knee range of motion is from 0 degrees of extension to 80 degrees of flexion actively. Patient is able to perform a straight leg raise test. She is able to actively dorsi and plantarflex her foot.Patient's calf soft and supple nontender to palpation. Quad strength is 3 out of 5. She is neurovascular intact in the right lower extremity. Peripheral pulses are 2+. Capillary fill is less than 2 seconds. Discharge Data Allergies Allergy/AdvReac Type Severity Reaction Status Date / Time nickel Allergy Rash Verified 11/11/20 09:17 No Known Drug Allergies Allergy Verified 11/11/20 09:17 Procedures Performed Operation Date: 11/11/20 11:40 Actual Procedures p Right Total Knee Arthroplasty(Right) - Hugh Coy MD Ordered Studies 11/11/20 05:00 US - OR guided needle placemen Routine Hospital Course (1) S/P total knee arthroplasty: Patient had an uneventful overnight stay following right total knee arthroplasty. States she is very pleased with the results of her surgery. She is planning on discharge home later this morning with in-home physical therapy for the 2-week postoperative period. Total Time Total Time Spent Total Time Spent (In Minutes): 20 minutes Discharge Plan Discharge Items Patient Disposition: Home - Home Health Services Reason For Visit: Right Knee Osteoarthritis Discharge Diagnosis: Right knee osteoarthritis Activity: As commented below Lifting: None Bathing: Keep incision dry Bathing Comment: May shower tomorrow Sexual Activity: Wait until after follow-up appointment Exercise/Sports: Wait until after follow-up appointment Driving/Machine Use: No driving until cleared by content management specialist Weightbearing: Right weightbearing Weightbearing Comment: as tolerated with immobilizer and walker assistance Non-emergency contact: Primary Care Provider Call non-emergency contact if: you have any medication questions, your pain is not controlled, your temperature is above 101.5, your wound has increased drainage and your wound pain has increased Follow-up/Referrals: Angelina Locke PA-C [Primary Care Provider] - Diet: Regular Addtl Attending Provider Instructions: Post-operative Instructions Dear Patient and Family/Friends, Before you are discharged from the hospital, it is important to know what to expect when you get home after surgery. To that end, we have created this sheet of discharge instructions which covers many commonly asked questions. Make sure you go through this sheet in its entirety with your nurse before you are discharged. Please note that we will go over the specifics of your surgery and recovery when you return for your first post-operative visit. Sincerely, Dr. Coy Medications 1. Oxycodone 5mg: take 1 tab every 4-6 hours as needed for post operative pain control. A prescription for 30 tabs will be sent to your pharmacy. 2. Diclofenac Sodium 75 mg: take 1 tab twice daily for 30 days post operatively for pain and inflammation relief. Do not take Other anti-inflammatories while using this medication. 3. Aspirin 81 mg:Take 1 tab twice daily for the first 30 days post operatively for blood clot prevention. Please purchase. 4. Extra Strength Tylenol 500 mg: take 2 tabs every 6-8 hours for supplemental pain control following surgery. Please purchase. Pain Expect to be in a fair amount of pain after surgery. Remember, our goal is not to eliminate your pain, but to make it tolerable. It is a good idea to stay ahead of your pain by taking the medications you were prescribed once you get home. Typically, the pain starts improving 3-7 days after surgery. You should start weaning off the narcotic pain medication (oxycodone, hydrocodone, hydromorphone, morphine) as soon as your pain improves. Please call our office if your pain is not adequately controlled. Ice Ice your operative site at least 5 times a day for 15-30 minutes at a time. Make sure you have a thin cloth between the ice or cooling unit and your skin to prevent low bite. This is especially important if you received a nerve block. Continue icing your operative site for the first 5-7 days after surgery, then as needed. Diet/Nausea/Vomiting Start by drinking clear liquids and eating crackers. If you can tolerate this, then you may resume your normal diet. If you feel nauseated or vomit, take Zofran/ondansetron (if prescribed). Please call our office if you have intractable nausea or vomiting, or, if after hours, you may go to the Emergency Room for help. Constipation Constipation is a common side effect of narcotic pain medication. If you have not had a bowel movement within 2 days after surgery, we recommend purchasing an over the counter laxative such as Milk of Magnesia, Dulcolax, or Miralax from a local pharmacy, and taking it as instructed. Call our clinic if any questions. Slings and Braces If you were placed in a sling or brace, it must be worn at all times, including sleep. You may remove your sling or brace for physical therapy, home exercises, and showering. The length of time you will be in your brace and range of motion restrictions depends on what surgery you had; these details will be reviewed at your first post-operative appointment. Nerve block The anesthesia team sometimes places a nerve block to help with post-operative pain control. This results in significant numbness and inability to move the extremity. The nerve block usually wears off in 8-12 hours, but sometimes can last up to 24 hours. Please call our office if you are still unable to move your extremity after 24 hours, unless you received a pain pump to take home. Nerve blocks typically wear off quickly, so start taking pain medication as soon as you start feeling soreness near your surgical site. Weight bearing and Range of Motion. Do not bear any weight through your operative extremity immediately after surgery. If you had upper extremity surgery, do not lift anything with that arm. If you are in a knee brace, keep it locked in place until your follow-up. We will discuss your weight bearing, range of motion, and lifting restrictions in detail at your first post-operative appointment. Continuous Passive Motion (CPM) Machine If you were prescribed a CPM machine, it will start after your first post- operative appointment, at which time we will give you instructions on the range of motion settings and duration of treatment Physical therapy You will be given a prescription for physical therapy or occupational therapy at your first post-operative appointment. Typically, patients start therapy within 1 week of surgery Wound care and showering We will inspect your wound at your first post-operative visit, and may do a dressing change at that time. Most patients will be in a water-proof dressing that is removed 14 days after surgery. It is normal to see some dried blood on the dressing. Do not remove your dressing, paper strips or sutures yourself unless you are given permission. Showering is allowed the day after surgery. Do not scrub or remove any dressings. The wound should not be submerged underwater (i.e. in a bathtub or pool) until 4 weeks after surgery YASMINE stockings If you were given white stockings, these are to be worn at all times except to shower (on both legs) for the first 2 weeks after surgery. Driving You may not drive while taking narcotic pain medication or while in a cast, splint, sling or brace. You, the patient, need to make the final determination about when you are safe to drive, however, the earliest you may consider driving after surgery is below: Hand/Wrist/Elbow Surgery: 3 days Shoulder Surgery: 2 weeks Hip,/Knee/Ankle Surgery: 4 weeks Fracture repair: 6 weeks Return to Work Your return to work depends on what surgery was done and what type of work you do. Please bring any paperwork your employer needs completed to your first post-operative visit. Also, bring a description of your job duties, as this helps us to understand what risks you may face at work. Travel Avoid long distance travel (greater than 1 hour) in airplanes and cars for the first 6 weeks after surgery. If you must travel, you need to have a Doppler ultrasound done before you travel to rule out a blood clot in your legs. Follow-up You should have a follow-up appointment already scheduled 1-2 days after surgery. If not, please contact our office to make this appointment before you leave the hospital. When to call the office It is normal to have swelling and bruising in the limb that was operated on. This will improve with time. It is also normal to have fevers for the first 2 days after surgery. Reasons you should call your doctor include: Uncontrolled pain; Nausea, vomiting, or constipation that does not improve with medication; Fevers over 101.5, chills, sweats; Drainage or bleeding from the wound; Foul odor; Spreading areas of redness; Any other concerns Pending Studies at Discharge: No Stand-Alone Forms: My [facility] Medications and DC Order Prescriptions: New oxycodone 5 mg tablet 5 mg PO Q4H MDD Initial prescription Qty: 30 RF: 0 diclofenac sodium 75 mg tablet,delayed release (DR/EC) 75 mg PO BID 30 Days Qty: 60 RF: 1 Continued multivitamin Tablet 1 tab PO QAM RF: 0 fluoxetine 40 mg Capsule 80 mg PO QAM RF: 0 atorvastatin 20 mg Tablet 20 mg PO HS RF: 0 levothyroxine 50 mcg Tablet 50 mcg PO QAM RF: 0 triamterene-hydrochlorothiazid 37.5-25 mg Tablet 1 tab PO HS RF: 0 losartan 100 mg Tablet 100 mg PO QAM RF: 0 esomeprazole magnesium 20 mg Tablet,Delayed Release (Dr/Ec) 20 mg PO QAM RF: 0 Discontinued meloxicam 15 mg Tablet 15 mg PO HS RF: 0 Discharge Orders: Discharge Order (Routine); Ordered 11/12/20 Ordered By: Elier Meza Admission Data Admit Date/Time: 11/11/20 13:54 Attending Provider: Hugh Coy Admit Provider: Hugh Coy Primary Care Provider: Angelina Locke Other Providers: [facility]
--- NOTE | 2020-11-12 15:05 | Operative Report ---
Post Operative Report Pre & Post Diagnosis Operation Date: 11/11/20 11:40 Pre-Op Diagnosis: Right Knee Osteoarthritis Post-Op Diagnosis: Right Knee Osteoarthritis I identified the patient and participated in the time-out.: Yes Procedure Operation Date: 11/11/20 11:40 Actual Procedures p Right Total Knee Arthroplasty(Right) - Hugh Coy MD Surgeon Hugh Coy MD School Laboratory Technician Joe Flores MD; Ayush Meza PA-C Estimated Blood Loss 100 Findings Consistent with Post-Op Diagnosis Specimens bone cuts Description of Procedure As per Dr. Coy's note, I assisted in prepping and draping, instruments handling certain parts of the procedure and wound closure. I attest to the content of the Intraoperative Record and any orders documented therein. Any exceptions are noted below.
[2020-11-12] MEDS ORDERED: CeleBREX 200 MG CAP PO SCH (18:00)
== END 2020-11-12 14:17 | disposition home health service (06) ==
LOC: 3E 08:42 → ASU 08:42

== ENCOUNTER 2024-01-30 09:23 | Inpatient (IN) ==
--- NOTE | 2024-01-30 09:49 | Emergency Department Note ---
Impression & Plan Sepsis, UTI (urinary tract infection) ED Provider Note NAME: CARA GONZALEZ AGE: 68 SEX: F : 1955 ARRIVES VIA: Walk-In INFORMANT: Patient ED PROVIDER(S): Dhruv Quintanilla DO CHIEF COMPLAINT: Myalgias, arthralgias weak and short of breath HPI: Patient is a 68-year-old female who presents to the ER for not feeling well. She notes the symptoms started last night. She admits to diffuse myalgias, arthralgias and fevers. She has shaking chills. She feels hot and cold. She also admits to some shortness of breath. Denies any headache or change in vision. No chest pain or belly pain. No nausea, vomiting, or diarrhea. No dysuria, urgency, or frequency. No other exacerbating or remitting factors. She notes the only sick contact is family member who is a dental infection currently. ADDITIONAL HISTORY OBTAINED: Per HPI Chronic Medical/Social Conditions Affecting Care: Per HPI PAST MEDICAL HISTORY:See Below PAST SURGICAL HISTORY:See Below FAMILY HISTORY:See Below SOCIAL HISTORY:See Below HOME MEDICATIONS:See Below ALLERGIES:See Below VITALS:See Below PHYSICAL EXAMINATION: GENERAL: Sitting up in bed, alert, slightly ill-appearing, disheveled EYE EXAM: normal conjunctiva. PERRL and EOM's grossly intact. OROPHARYNX: mucous membranes are moist NECK: supple, no nuchal rigidity, no adenopathy, non-tender LUNGS: Clear to auscultation. Normal chest wall mechanics HEART: Tachycardic, S1 normal and S2 normal ABDOMEN: abdomen soft, non-tender, normo-active bowel sounds, no masses, no rebound or guarding. UPPER EXTREMITIES: upper extremities are grossly normal. LOWER EXTREMITIES: No pitting edema. NEURO EXAM: Normal sensorium, cranial nerves II-XII grossly intact, normal speech, no gross weakness of arms, no gross weakness of legs. MEDICAL DECISION MAKING: Patient is a 68-year-old female who presents to the ER for not feeling well. Upon arrival she is found to be tachycardic with a heart rate in the 150s and a temperature of 39. IV was established blood work is obtained. She is given 2 L of IV fluids as well as Tylenol and IV antibiotics. Labs show mild leukocytosis of 13,000. No significant anemia. BMP was fairly unremarkable with slightly elevated glucose. Troponin was negative. Pro-Rashaad at 0.23. UA was consistent with UTI. Chest x-ray was clean. Patient was heart rate where after IV fluids and Tylenol did trend down to the low 100s. She was updated bedside. She was discussed with the hospitalist admitted for further workup of her sepsis likely secondary to UTI. Consults/Care Managements Discussions: Per [facility] Triage Nursing notes reviewed. Limited review of prior medical records performed Vital Signs: reviewed and remarkable for tachy and febrile Differential diagnosis: Differential diagnosis includes etiologies such as sepsis, UTI, pneumonia, metabolic, electrolyte abnormalities, cardiac sources, intracerebral event, toxicologic, neurological, as well as others were entertained. ER treatment provided: See below Diagnostics interpreted by me include EKG and cardiac monitoring as listed below: -Cardiac Monitoring: An order was placed for continuous cardiac monitoring. The monitor shows a rate of 142 with sinus rhythm. -ECG: Sinus tachycardia rate of 129 Normal axis No PVCs QTc 410 Septal Q waves -Laboratory studies:Interpreted by me as stated above in MDM and shown below. Imaging studies: Xrays: As interpreted by me: Portable AP upright 1 view of the chest shows no focal infiltrate CTs show: None Procedures: None Critical Care: I have personally spent 32 minutes of critical care time in the direct management of this patient. This includes bedside care, interpretation of diagnostic studies, and testing, discussion with consultants, patient, and family members, and other required patient management activities. This 32 minutes is in excess of all separately billable procedures. Past Med/Surg History Problem List (Updated 01/30/24 @ 15:28 by Dhruv Quintanilla DO) UTI (urinary tract infection) (Acute) Sepsis (Acute) Medical History (Updated 01/30/24 @ 15:28 by Dhruv Quintanilla DO) Anemia Diabetes No reported hx, but A1C noted to be 6.5% on per-op labs. Sent to PCP for their review. 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 Very faint systolic murmur noted at PAT. HLD (hyperlipidemia) HTN (hypertension) Sleep apnea CPAP, reports using it ~ 50% of the time Surgical History (Updated 01/30/24 @ 12:22 by Natalio Osuna MD) S/P total knee arthroplasty History of x 2 History of hysterectomy History of bladder surgery History of esophagogastroduodenoscopy (EGD) History of colonoscopy History of tooth extraction Family History Father Diabetes Other No family history of adverse response to anesthesia Social History Smoking Status: Never smoker Second Hand Exposure: Yes (hx); Do You Dip or Chew Tobacco: No; Hx Alcohol Use: No Hx Substance Use: No Preferred Language: Citizen Of [place] Communication Ability: Effective Senior Tax Analyst Required: No Beliefs That Will Affect Care: None marital status: Current Living Situation: Spouse Feels Safe at Home: Yes Assistive Devices: Walker Allergies Allergies Allergy/AdvReac Type Severity Reaction Status Date / Time nickel Allergy Rash Verified 01/30/24 13:14 No Known Drug Allergies Allergy Verified 01/30/24 13:14 Home Meds Home Medications Medication Instructions Recorded Confirmed atorvastatin 20 mg tablet 20 mg PO HS 10/18/20 01/30/24 levothyroxine 50 mcg tablet 50 mcg PO [facility] 10/18/20 01/30/24 losartan 100 mg tablet 100 mg PO QAM 10/18/20 01/30/24 multivitamin 1 tab PO QAM 10/18/20 01/30/24 amlodipine 5 mg tablet 5 mg PO DAILY 01/30/24 01/30/24 buspirone 7.5 mg tablet 7.5 mg PO BID 01/30/24 01/30/24 meloxicam 7.5 mg tablet 7.5 mg PO DAILY 01/30/24 01/30/24 sertraline 50 mg tablet 50 mg PO DAILY 01/30/24 01/30/24 triamterene 37.5 1 cap PO BID 01/30/24 01/30/24 mg-hydrochlorothiazide 25 mg capsule Results & Data (ED) Vital Signs Vital Signs - 24 hr 01/30/24 09:33 01/30/24 09:48 01/30/24 09:48 Temperature 39.1 C H Temperature Source Oral Pulse Rate 150 H 133 H 121 H Pulse Rate [Apical] Pulse Rate from SpO2 Sensor Pulse Rhythm Regular Respiratory Rate 22 24 Respiratory Effort / Characteristics Respiratory Depth Respiratory Pattern Blood Pressure 136/75 Blood Pressure [Left Arm] Blood Pressure Mean 95 Blood Pressure Mean [Left Arm] Pulse Oximetry 95 98 Oxygen Delivery Method Room Air Room Air Sepsis New/Unexplained Change in Mental Status No Sepsis Action Taken by Nursing No Action Required 01/30/24 09:53 01/30/24 10:02 01/30/24 10:11 Temperature Temperature Source Pulse Rate 127 H 128 H 119 H Pulse Rate [Apical] Pulse Rate from SpO2 Sensor 128 H 127 H 120 H Pulse Rhythm Respiratory Rate 26 H 25 H 23 Respiratory Effort / Characteristics Respiratory Depth Respiratory Pattern Blood Pressure 132/73 159/69 H Blood Pressure [Left Arm] Blood Pressure Mean 92 99 Blood Pressure Mean [Left Arm] Pulse Oximetry 94 95 98 Oxygen Delivery Method Room Air Room Air Room Air Sepsis New/Unexplained Change in Mental Status Sepsis Action Taken by Nursing 01/30/24 10:15 01/30/24 10:30 01/30/24 10:45 Temperature Temperature Source Pulse Rate 118 H 118 H 120 H Pulse Rate [Apical] Pulse Rate from SpO2 Sensor Pulse Rhythm Respiratory Rate 24 25 H 23 Respiratory Effort / Characteristics Respiratory Depth Respiratory Pattern Blood Pressure 136/89 129/82 136/84 Blood Pressure [Left Arm] Blood Pressure Mean 107 103 102 Blood Pressure Mean [Left Arm] Pulse Oximetry 97 97 97 Oxygen Delivery Method Room Air Room Air Room Air Sepsis New/Unexplained Change in Mental Status Sepsis Action Taken by Nursing 01/30/24 11:00 01/30/24 12:00 Temperature Temperature Source Pulse Rate Pulse Rate [Apical] 120 H 116 H Pulse Rate from SpO2 Sensor Pulse Rhythm Respiratory Rate 18 18 Respiratory Effort / Characteristics Non-Labored Spontaneous Non-Labored Spontaneous Respiratory Depth Normal Normal Respiratory Pattern Regular Regular Blood Pressure Blood Pressure [Left Arm] 136/89 158/80 H Blood Pressure Mean Blood Pressure Mean [Left Arm] 104 106 Pulse Oximetry 98 97 Oxygen Delivery Method Room Air Room Air Sepsis New/Unexplained Change in Mental Status Sepsis Action Taken by Nursing Laboratory Data 01/30/24 09:50 01/30/24 09:50 Lab Results 01/30/24 01/30/24 01/30/24 Range/Units 09:45 09:50 09:52 WBC 13.61 H (4.8-10.8) K/ul RBC 3.90 L (4.20-5.40) M/uL Hgb 11.2 L (12.0-16.0) g/dl POC Hgb (12.0-16.0) g/dl Hct 34.1 L (37.0-47.0) % POC Hct (37-47) % MCV 87.4 (80.0-100.0) fL MCH 28.7 (25.0-34.0) pg MCHC 32.8 (32.0-36.0) g/dL RDW Std Deviation 44.3 (36.4-46.3) fL RDW Coeff of Jaison 13.9 (11.5-14.5) % Plt Count 161 (130-400) K/uL MPV 10.3 (9.4-12.4) fL Immature Gran % (Auto) 0.4 % Neut % (Auto) 81.9 % Lymph % (Auto) 8.1 % [place] % (Auto) 9.0 % Eos % (Auto) 0.4 % Baso % (Auto) 0.2 % Neut # (Auto) 11.15 H (1.40-6.50) K/uL Lymph # (Auto) 1.10 L (1.20-3.40) K/uL [place] # (Auto) 1.23 H (0.11-0.59) K/uL Eos # (Auto) 0.05 (0.00-0.50) K/uL Baso # (Auto) 0.03 (0.00-0.20) K/uL Immature Gran # (Auto) 0.05 (0.01-0.20) K/uL POC Sodium (135-144) mmol/L Sodium 140 (136-145) mmol/L POC Potassium (3.3-5.0) mmol/L Potassium 4.3 (3.5-5.1) mmol/L POC Chloride (101-112) mmol/L Chloride 108 H (98-107) mmol/L Carbon Dioxide 23 (21-32) mmol/L POC Total CO2 (24-31) mmol/L Anion Gap 9 (3-11) POC Anion Gap (16-25) mmol/L POC BUN (7-18) mg/dl BUN 37 H (6-23) mg/dl Creatinine 1.18 (0.6-1.2) mg/dl POC Creatinine (0.6-1.3) mg/dl Est Cr Clr Drug Dosing 46.7 ml/min Est GFR ( Amer) 55.3 ml/min Est GFR (Non-Af Amer) 47.7 ml/min BUN/Creatinine Ratio 31.4 H (10-20) Glucose 115 H (70-99(Fasting)) mg/dl POC Glucose (other) (70-99) mg/dl Lactate 1.4 (0.4-2.0) mmol/L Calcium 9.3 (8.6-10.3) mg/dl POC Ioniz Calcium Deven (1.12-1.32) mmol/l Magnesium 1.4 L (1.7-2.4) mg/dl Total Bilirubin 0.3 (0.2-1.0) mg/dl Direct Bilirubin 0.1 (0-0.2) mg/dl AST 27 (13-39) U/L ALT 36 (7-52) U/L Alkaline Phosphatase 73 (34-104) U/L Troponin I High Sens 13.3 (0-14) pg/ml Total Protein 7.2 (6.0-8.3) gm/dl Albumin 4.3 (3.4-5.0) gm/dl Procalcitonin 0.23 (0-0.5) ng/ml Urine Color Yellow Urine Appearance Cloudy A (Clear) Urine pH 5.5 (4.5-7.5) Ur Specific [place] 1.016 (1.000-1.030) Urine Protein 1+ H (Negative) Urine Glucose (UA) Negative (Negative) Urine Ketones Negative (Negative) Urine Blood 1+ H (Negative) Urine Nitrite Positive A (Negative) Urine Bilirubin Negative (Negative) Urine Urobilinogen Negative (Negative) Ur Leukocyte Esterase 3+ H (Negative) Urine WBC (Auto) >50 H (0-5) /hpf Urine RBC (Auto) 3-5 H (0-2) /hpf U Hyaline Cast (Auto) 3-5 H (0-2) /lpf U Epithel Cells (Auto) 0-2 (0-2) /hpf Urine Bacteria (Auto) 4+ H (None Seen) Adenovirus (PCR) Not Detected (NotDetected) B. pertussis DNA (PCR) Not Detected (NotDetected) B.parapertussis DNA PCR Not Detected (NotDetected) C. pneumoniae DNA (PCR) Not Detected (NotDetected) Coronavirus OC43 (PCR) Not Detected (NotDetected) Coronavirus HKU1 (PCR) Not Detected (NotDetected) Coronavirus 229E (PCR) Not Detected (NotDetected) SARS-CoV-2 (PCR) Not Detected (NotDetected) Coronavirus NL63 (PCR) Not Detected (NotDetected) Human Metapneumovir PCR Not Detected (NotDetected) Influenza Type A (PCR) Not Detected (NotDetected) Influenza Type B (PCR) Not Detected (NotDetected) M. pneumoniae (PCR) Not Detected (NotDetected) Parainfluenza 1 (PCR) Not Detected (NotDetected) Parainfluenza 2 (PCR) Not Detected (NotDetected) Parainfluenza 3 (PCR) Not Detected (NotDetected) Parainfluenza 4 (PCR) Not Detected (NotDetected) RSV (PCR) Not Detected (NotDetected) Entero/Rhino (PCR) Not Detected (NotDetected) 01/30/24 Range/Units 10:12 WBC (4.8-10.8) K/ul RBC (4.20-5.40) M/uL Hgb (12.0-16.0) g/dl POC Hgb 11.9 L (12.0-16.0) g/dl Hct (37.0-47.0) % POC Hct 35 L (37-47) % MCV (80.0-100.0) fL MCH (25.0-34.0) pg MCHC (32.0-36.0) g/dL RDW Std Deviation (36.4-46.3) fL RDW Coeff of Jaison (11.5-14.5) % Plt Count (130-400) K/uL MPV (9.4-12.4) fL Immature Gran % (Auto) % Neut % (Auto) % Lymph % (Auto) % [place] % (Auto) % Eos % (Auto) % Baso % (Auto) % Neut # (Auto) (1.40-6.50) K/uL Lymph # (Auto) (1.20-3.40) K/uL [place] # (Auto) (0.11-0.59) K/uL Eos # (Auto) (0.00-0.50) K/uL Baso # (Auto) (0.00-0.20) K/uL Immature Gran # (Auto) (0.01-0.20) K/uL POC Sodium 140 (135-144) mmol/L Sodium (136-145) mmol/L POC Potassium 4.2 (3.3-5.0) mmol/L Potassium (3.5-5.1) mmol/L POC Chloride 111 (101-112) mmol/L Chloride (98-107) mmol/L Carbon Dioxide (21-32) mmol/L POC Total CO2 18 L (24-31) mmol/L Anion Gap (3-11) POC Anion Gap 16.0 (16-25) mmol/L POC BUN 33 H (7-18) mg/dl BUN (6-23) mg/dl Creatinine (0.6-1.2) mg/dl POC Creatinine 1.2 (0.6-1.3) mg/dl Est Cr Clr Drug Dosing ml/min Est GFR ( Amer) ml/min Est GFR (Non-Af Amer) ml/min BUN/Creatinine Ratio (10-20) Glucose (70-99(Fasting)) mg/dl POC Glucose (other) 115 H (70-99) mg/dl Lactate (0.4-2.0) mmol/L Calcium (8.6-10.3) mg/dl POC Ioniz Calcium Deven 1.03 L (1.12-1.32) mmol/l Magnesium (1.7-2.4) mg/dl Total Bilirubin (0.2-1.0) mg/dl Direct Bilirubin (0-0.2) mg/dl AST (13-39) U/L ALT (7-52) U/L Alkaline Phosphatase (34-104) U/L Troponin I High Sens (0-14) pg/ml Total Protein (6.0-8.3) gm/dl Albumin (3.4-5.0) gm/dl Procalcitonin (0-0.5) ng/ml Urine Color Urine Appearance (Clear) Urine pH (4.5-7.5) Ur Specific [place] (1.000-1.030) Urine Protein (Negative) Urine Glucose (UA) (Negative) Urine Ketones (Negative) Urine Blood (Negative) Urine Nitrite (Negative) Urine Bilirubin (Negative) Urine Urobilinogen (Negative) Ur Leukocyte Esterase (Negative) Urine WBC (Auto) (0-5) /hpf Urine RBC (Auto) (0-2) /hpf U Hyaline Cast (Auto) (0-2) /lpf U Epithel Cells (Auto) (0-2) /hpf Urine Bacteria (Auto) (None Seen) Adenovirus (PCR) (NotDetected) B. pertussis DNA (PCR) (NotDetected) B.parapertussis DNA PCR (NotDetected) C. pneumoniae DNA (PCR) (NotDetected) Coronavirus OC43 (PCR) (NotDetected) Coronavirus HKU1 (PCR) (NotDetected) Coronavirus 229E (PCR) (NotDetected) SARS-CoV-2 (PCR) (NotDetected) Coronavirus NL63 (PCR) (NotDetected) Human Metapneumovir PCR (NotDetected) Influenza Type A (PCR) (NotDetected) Influenza Type B (PCR) (NotDetected) M. pneumoniae (PCR) (NotDetected) Parainfluenza 1 (PCR) (NotDetected) Parainfluenza 2 (PCR) (NotDetected) Parainfluenza 3 (PCR) (NotDetected) Parainfluenza 4 (PCR) (NotDetected) RSV (PCR) (NotDetected) Entero/Rhino (PCR) (NotDetected) Administered Medications Discontinued Medications Acetaminophen (Acetaminophen 325 Mg Tab) 650 mg PO NOW STA Stop: 01/30/24 09:47 Last Admin: 01/30/24 10:03 Dose: 650 mg Documented By: MUNDO Sodium Chloride (Nss) 1,000 mls @ 999 mls/hr IV .Q1H1M INDER Stop: 01/30/24 11:45 Last Infusion: 01/30/24 13:43 Dose: Infused Documented By: OLGA LIDIA Admin: 01/30/24 12:38 Dose: 999 mls/hr Documented By: OLGA LIDIA Infusion: 01/30/24 11:19 Dose: Infused Documented By: OLGA LIDIA Admin: 01/30/24 10:03 Dose: 999 mls/hr Documented By: MUNDO Ceftriaxone Sodium (Rocephin) 2,000 mg in 50 mls @ 100 mls/hr IV NOW STA Stop: 01/30/24 10:15 Last Infusion: 01/30/24 11:19 Dose: Infused Documented By: OLGA LIDIA Admin: 01/30/24 10:03 Dose: 100 mls/hr Documented By: MUNDO Imaging Data Radiologist's Impression: Chest X-Ray 01/30/24 09:38 XR chest 1V portable CLINICAL HISTORY: Sepsis. COMPARISON STUDY: No previous studies for comparison. FINDINGS: Lung volumes are normal. Lungs are clear. There is no pneumothorax or pleural effusion. Cardiac size is normal. Mediastinal contours are normal. There is no evidence for pulmonary edema. IMPRESSION: No acute cardiopulmonary findings. ACT 112: Negative or not required by law. Electronically signed by: Jonn Cazares M.D. 01/30/2024 10:21 AM Discharge Plan Visit Data Chief Complaint: Illness Stated Complaint: WEAKNESS, CHILLS, VOMITING, SOB ED Provider: Dhruv Quintanilla Discharge Problem: Sepsis, UTI (urinary tract infection) Patient Disposition: Admitted As Inpatient Discharge Instructions Interventions: ED Discharge Assessment Last Done: 01/30/24 15:16 Discharge Problem: Sepsis Qualifiers: Sepsis type: sepsis due to unspecified organism Sepsis acute organ dysfunction status: unspecified Qualified Code(s): A41.9 - Sepsis, unspecified organism UTI (urinary tract infection) Qualifiers: Urinary tract infection type: acute cystitis Hematuria presence: with hematuria Qualified Code(s): N30.01 - Acute cystitis with hematuria
[2024-01-30] MEDS: SODIUM CHLORIDE 0.9% 1,000 ML IV SCH (10:03)
[2024-01-30] MEDS: ACETAMINOPHEN 325 MG TAB PO STA (10:03)
[2024-01-30] MEDS: cefTRIAXone SODIUM 2,000 MG/50 ML BAG IV STA (10:03)
--- NOTE | 2024-01-30 10:22 | XRay Report ---
XR chest 1V portable CLINICAL HISTORY: Sepsis. COMPARISON STUDY: No previous studies for comparison. FINDINGS: Lung volumes are normal. Lungs are clear. There is no pneumothorax or pleural effusion. Car diac size is normal. Mediastinal contours are normal. There is no evidence for pulmonary edema. IMPRESSION: No acute cardiopulmonary findings. ACT 112: Negative or not required by law. Electronically signed by: Jonn Cazares M.D. 01/30/2024 10:21 AM
[2024-01-30 10:24] LABS: Basophils # (auto) 0.03 K/uL (0.00-0.20); Basophils % (auto) 0.2 %; Eosinophils # (auto) 0.05 K/uL (0.00-0.50); Eosinophils % (auto) 0.4 %; Hematocrit (blood only) 34.1 % (37.0-47.0); Hemoglobin 11.2 g/dl (12.0-16.0); Immature Granulocytes # (auto) 0.05 K/uL (0.01-0.20); Immature Granulocytes % (auto) 0.4 %; Lymphocytes % (auto) 8.1 %; Mean Corpuscular Hemoglobin 28.7 pg (25.0-34.0); Mean Corpuscular Hgb Conc 32.8 g/dL (32.0-36.0); Mean Corpuscular Volume 87.4 fL (80.0-100.0); Mean Platelet Volume 10.3 fL (9.4-12.4); Monocytes # (auto) 1.23 K/uL (0.11-0.59); Neutrophils # (auto) 11.15 K/uL (1.40-6.50); Neutrophils % (auto) 81.9 %; Platelet Count 161 K/uL (130-400); RDW Coefficient of Variation 13.9 % (11.5-14.5); RDW Standard Deviation 44.3 fL (36.4-46.3); White Blood Count 13.61 K/ul (4.8-10.8)
[2024-01-30 10:26] LABS: Appearance Urine Cloudy (Clear); Bacteria Urine Automated 4+ (None Seen); Bilirubin Urine Negative (Negative); Blood Urine 1+ (Negative); Color Urine Yellow; Epithelial Cell Urine Auto 0-2 /hpf (0-2); Glucose Urine UA Negative (Negative); Ketones Urine Negative (Negative); Leukocyte Esterase Urine 3+ (Negative); Nitrite Urine Positive (Negative); Protein Urine 1+ (Negative); Specific Gravity Urine 1.016 (1.000-1.030); Urobilinogen Urine Negative (Negative); WBC Urine Automated >50 /hpf (0-5); pH Urine 5.5 (4.5-7.5)
[2024-01-30 10:34] LABS: iSTAT Creatinine 1.2 mg/dl (0.6-1.3); iSTAT Hemoglobin 11.9 g/dl (12.0-16.0); iSTAT Ionized Calcium 1.03 mmol/l (1.12-1.32); iSTAT Potassium 4.2 mmol/L (3.3-5.0)
[2024-01-30 10:34] LABS: Albumin Level 4.3 gm/dl (3.4-5.0); BUN Creatinine Ratio 31.4 (10-20); Bilirubin Direct 0.1 mg/dl (0-0.2); Bilirubin,Total 0.3 mg/dl (0.2-1.0); Calcium 9.3 mg/dl (8.6-10.3); Creatinine Clr Calc Pharmacy 46.7 ml/min; Est GFR (African American) 55.3 ml/min; Est GFR (Non-African American) 47.7 ml/min; Magnesium 1.4 mg/dl (1.7-2.4); Potassium 4.3 mmol/L (3.5-5.1); Total Protein 7.2 gm/dl (6.0-8.3)
[2024-01-30 10:38] LABS: Troponin I High Sensitivity 13.3 pg/ml (0-14)
[2024-01-30 11:09] LABS: Adenovirus PCR Not Detected (NotDetected); Bordetella parapertussis PCR Not Detected (NotDetected); Bordetella pertussis PCR Not Detected (NotDetected); Chlamydia pneumoniae PCR Not Detected (NotDetected); Coronavirus 229E PCR Not Detected (NotDetected); Coronavirus CoV-2 (COVID19)PCR Not Detected (NotDetected); Coronavirus HKU1 PCR Not Detected (NotDetected); Coronavirus NL63 PCR Not Detected (NotDetected); Coronavirus OC43PCR Not Detected (NotDetected); Human Metapneumovirus PCR Not Detected (NotDetected); Influenza A PCR Not Detected (NotDetected); Influenza B PCR Not Detected (NotDetected); Mycoplasma pneumoniae PCR Not Detected (NotDetected); Parainfluenza Virus 1 PCR Not Detected (NotDetected); Parainfluenza Virus 2 PCR Not Detected (NotDetected); Parainfluenza Virus 3 PCR Not Detected (NotDetected); Parainfluenza Virus 4 PCR Not Detected (NotDetected); Respiratory Syncytial VirusPCR Not Detected (NotDetected); Rhinovirus/Enterovirus PCR Not Detected (NotDetected)
--- NOTE | 2024-01-30 12:28 | History & Physical Report ---
Date of Service January 30, 2024 Assessment & Plan (1) Sepsis: Plan: SIRS criteria with HR and WBC Lactate 1.4 and no hypotension to me need for fluid bolus however patient is tachycardic and received 2L NSS bolus Empiric antibiotics targeted to UTI as suspected source (although no specific urinary complaints, UA is grossly infected appearing) - ceftriaxone 2g IV daily Follow up urine and blood culture (2) Sleep apnea: Plan: CPAP HS (3) HTN (hypertension): Plan: Given she missed her morning medications will continue to hold her anti- hypertensives other than amlodipine, restart as able per serial BP measurements (4) Hypothyroidism: Plan: TSH with AM labs Continue levothyroxine (5) UTI (urinary tract infection): Plan Anxiety and depression - continue sertraline and BuSpar Hyperlipidemia - continue atorvastatin VTE prophylaxis - Lovenox 40 mg subcu daily Diet - regular Disposition - admit to PCU Admission and Anticipated Discharge Date Admission Date: January 30, 2024 History of Present Illness Chief Complaint: Fever, chills, generalized weakness, fatigue Primary Care Provider: Angelina Locke PA-C Sabrina Putnam is a 68-year-old female who presents to the ER with fever, chills, fatigue and generalized weakness. Symptoms started all of a sudden last night although with hindsight she has been feeling more fatigued over the last month and needing to sleep during the day time. Initial symptoms last night with feeling freezing and needing 6 blankets and not able to fall asleep. Today she was hot and aching all over with bilateral generalized weakness with nausea but no vomiting. She called her daughter in law who brought her to the ER. Never had similar symptoms previously. No headache, neck stiffness or specific respiratory, gastrointestinal or urinary symptoms. She did not take her morning medications. Using her usual CPAP at night. Allergies Allergy/AdvReac Type Severity Reaction Status Date / Time nickel Allergy Rash Verified 01/30/24 13:14 No Known Drug Allergies Allergy Verified 01/30/24 13:14 Home Medications Medication Instructions Recorded Confirmed Type atorvastatin 20 mg tablet 20 mg PO HS 10/18/20 01/30/24 History levothyroxine 50 mcg tablet 50 mcg PO QAM 10/18/20 01/30/24 History losartan 100 mg tablet 100 mg PO QAM 10/18/20 01/30/24 History multivitamin 1 tab PO QAM 10/18/20 01/30/24 History amlodipine 5 mg tablet 5 mg PO DAILY 01/30/24 01/30/24 History buspirone 7.5 mg tablet 7.5 mg PO BID 01/30/24 01/30/24 History meloxicam 7.5 mg tablet 7.5 mg PO DAILY 01/30/24 01/30/24 History sertraline 50 mg tablet 50 mg PO DAILY 01/30/24 01/30/24 History triamterene 37.5 1 cap PO BID 01/30/24 01/30/24 History mg-hydrochlorothiazide 25 mg capsule Past Med/Surg History Problem List (Updated 01/31/24 @ 06:23 by Natalio Osuna MD) UTI (urinary tract infection) (Acute) Sepsis (Acute) Medical History (Updated 01/31/24 @ 06:23 by Natalio Osuna MD) Anemia Diabetes No reported hx, but A1C noted to be 6.5% on per-op labs. Sent to PCP for their review. Osteoarthritis GERD (gastroesophageal reflux disease) Hypothyroidism Anxiety and depression Cardiac murmur Pt reports heard a long time ago, no echo or animal impersonator. Very faint systolic murmur noted at PAT. HLD (hyperlipidemia) HTN (hypertension) Sleep apnea CPAP, reports using it ~ 50% of the time Surgical History (Updated 01/30/24 @ 12:22 by Natalio Osuna MD) S/P total knee arthroplasty History of x 2 History of hysterectomy History of bladder surgery History of esophagogastroduodenoscopy (EGD) History of colonoscopy History of tooth extraction Family History Father Diabetes Other No family history of adverse response to anesthesia Social History Smoking Status: Never smoker Second Hand Exposure: Yes (hx); Do You Dip or Chew Tobacco: No; Hx Alcohol Use: No Hx Substance Use: No Preferred Language: Mauritanian Communication Ability: Effective Bus Greaser Required: No Beliefs That Will Affect Care: None marital status: Current Living Situation: Alone Feels Safe at Home: No Safety Concerns: Feels Safe At This Time Assistive Devices: CPAP, Denture - Upper and Glasses Review of Systems Review of Systems: All systems reviewed & are unremarkable except as noted in HPI & below Physical Exam Constitutional: WD/WN, vitals as above Eyes: PERRL, conjunctivae normal, anicteric sclerae ENMT: Mouth: + dry oral mucous membranes Respiratory: normal respiratory effort, lungs clear to auscultation Cardiovascular: Rate/Rhythm: regular rhythm and + tachycardic Heart Sounds: + murmur (2/6 COURTNEY LUSB) Extremities: normal capillary refill; no calf tenderness and no pedal edema Gastrointestinal (Abdomen): normal bowel sounds, soft, nontender, no hepatosplenomegaly Skin: no rashes, warm and dry Neurologic: moves all extremities and awake; not confused Psychiatric: A+Ox3, euthymic affect Genitourinary: no CVA tenderness Results & Data Results & Data Vital Signs (Past 12 Hours) Vital Signs Temp Pulse Resp BP Pulse Ox O2 Del Method 01/30/24 10:45 120 H 23 136/84 97 Room Air 01/30/24 10:30 118 H 25 H 129/82 97 Room Air 01/30/24 10:15 118 H 24 136/89 97 Room Air 01/30/24 10:11 119 H 23 98 Room Air 01/30/24 10:02 128 H 25 H 159/69 H 95 Room Air 01/30/24 09:53 127 H 26 H 132/73 94 Room Air 01/30/24 09:48 121 H 24 98 Room Air 01/30/24 09:48 133 H 01/30/24 09:33 39.1 C H 150 H 22 136/75 95 Room Air Laboratory Results Abnormal lab results 01/30/24 01/30/24 01/30/24 Range/Units 09:45 09:50 10:12 WBC 13.61 H (4.8-10.8) K/ul RBC 3.90 L (4.20-5.40) M/uL Hgb 11.2 L (12.0-16.0) g/dl POC Hgb 11.9 L (12.0-16.0) g/dl Hct 34.1 L (37.0-47.0) % POC Hct 35 L (37-47) % Neut # (Auto) 11.15 H (1.40-6.50) K/uL Lymph # (Auto) 1.10 L (1.20-3.40) K/uL Mchenry # (Auto) 1.23 H (0.11-0.59) K/uL Chloride 108 H (98-107) mmol/L POC Total CO2 18 L (24-31) mmol/L POC BUN 33 H (7-18) mg/dl BUN 37 H (6-23) mg/dl BUN/Creatinine Ratio 31.4 H (10-20) Glucose 115 H (70-99(Fasting)) mg/dl POC Glucose (other) 115 H (70-99) mg/dl POC Ioniz Calcium Deven 1.03 L (1.12-1.32) mmol/l Magnesium 1.4 L (1.7-2.4) mg/dl Urine Appearance Cloudy A (Clear) Urine Protein 1+ H (Negative) Urine Blood 1+ H (Negative) Urine Nitrite Positive A (Negative) Ur Leukocyte Esterase 3+ H (Negative) Urine WBC (Auto) >50 H (0-5) /hpf Urine RBC (Auto) 3-5 H (0-2) /hpf U Hyaline Cast (Auto) 3-5 H (0-2) /lpf Urine Bacteria (Auto) 4+ H (None Seen) Diagnostic Findings XR chest 1V portable CLINICAL HISTORY: Sepsis. COMPARISON STUDY: No previous studies for comparison. FINDINGS: Lung volumes are normal. Lungs are clear. There is no pneumothorax or pleural effusion. Cardiac size is normal. Mediastinal contours are normal. There is no evidence for pulmonary edema. IMPRESSION: No acute cardiopulmonary findings. Medications Administered ER medications given: Normal saline 1 L bolus x2 Acetaminophen 650 mg p.o. Ceftriaxone 2000 mg IV ECG Rate (beats per minute): 129 Rhythm: sinus tachycardia Findings: no acute ischemic change Comparison ECG Date: from (October 19, 2020) Change: the following changes noted (Septal infarct changes now present) Code Status & VTE Plan Code Status Full VTE Prophylaxis Plan VTE Prophylaxis will be ordered: Yes PG Care Time/CCT Total # of Minutes Spent Total Time Spent with Patient: Total time spent is greater than 50% in coordination of care (as documented) at patient's floor/unit and/or counseling patient: Coding Level of Care Code 83451 INT INP/OBS CARE 3/75MIN Diagnoses Sepsis without acute organ dysfunction, due to unspecified organism A41.9 Sepsis type: sepsis due to unspecified organism Sepsis acute organ dysfunction status: without acute organ dysfunction Obstructive sleep apnea syndrome G47.33 Sleep apnea type: obstructive Primary hypertension I10 Hypertension type: primary hypertension Acquired hypothyroidism E03.9 Hypothyroidism type: acquired Acute cystitis with hematuria N30.01 Urinary tract infection type: acute cystitis Hematuria presence: with hematuria (1) Sepsis Sepsis type: sepsis due to unspecified organism Sepsis acute organ dysfunction status: without acute organ dysfunction Qualified Code(s): A41.9 - Sepsis, unspecified organism (2) Sleep apnea Sleep apnea type: obstructive Qualified Code(s): G47.33 - Obstructive sleep apnea (adult) (pediatric) (3) HTN (hypertension) Hypertension type: primary hypertension Qualified Code(s): I10 - Essential (primary) hypertension (4) Hypothyroidism Hypothyroidism type: acquired Qualified Code(s): E03.9 - Hypothyroidism, unspecified (5) UTI (urinary tract infection) Urinary tract infection type: acute cystitis Hematuria presence: with hematuria Qualified Code(s): N30.01 - Acute cystitis with hematuria
--- NOTE | 2024-01-30 15:25 | Electrocardiogram Report ---
Test Reason : Blood Pressure : */* mmHG Vent. Rate : 129 BPM Atrial Rate : 129 BPM P-R Int : 144 ms QRS Dur : 70 ms QT Int : 280 ms P-R-T Axes : 58 -8 49 degrees QTcB Int : 410 ms Sinus tachycardia Abnormal ECG When compared with ECG of 19-Oct-2020 16:09, Vent. rate has increased by 54 bpm Confirmed by Bashir Gtz ([id number]) on 01/30/2024 3:25:28 PM Referred By: REFERRED SELF Confirmed By: Bashir Gtz
[2024-01-30] MEDS: amLODIPine BESYLATE 5 MG TAB PO SCH (17:04)
[2024-01-30] MEDS: SERTRALINE HCL 50 MG TABLET PO SCH (17:04)
--- OUTSIDE RECORDS SUMMARY | 2024-01-30 18:44 | External Medical Summary | Continuity of Care Document ---
Author Name Unknown Organization [facility] [address] [facility] Address [address] [place], [place] [id number] Care Team Providers Care Judicial Registrar Name Role Phone Angelina Locke Primary Care Physician [phone] [id number] Date(s): 01/15/24 - 01/15/24 [facility] [address], [address] [place] [address] [phone] Encounter Diagnosis Acute low back pain(Discharge Diagnosis) - 01/15/24 Bilateral sacroiliitis(Discharge Diagnosis) - 01/15/24 Discharge Disposition: Home or Self Care Attending Physician: JENNIFER Locke Jessica A Allergies, Adverse Reactions, Alerts No Known Medication Allergies Assessment and Plan Extracted from: Title:sacroilitis Author:JENNIFER Locke Jessic a A Date:01/15/24 1.Acute low back pain Patient has acute low back pain with bilateral sacroiliitisthat is uncontrolled and goal is resolution of symptoms. Patient was given a prescription for prednisone 20 mg,3 tabs p.o. daily x 2 days,2 tabs p.o. daily x3 days, 1 tab p.o. daily x 4 days and 0.5 tab p.o. daily x 4 days. She is a known type II diabetic, but this has been very well-controlled with last A1c of 5.8%.Labs from 12/14/2023 reviewed today. Encouraged gentle stretching and activity as tolerated. We did discuss proceeding with referral for physical therapyor she could consider seeing a chiropractor; patient opts for the latter and will plan to self schedule. Advised to contact the office if symptoms are not improvingafter 2 to 3 weeks, worsen or change. Declines imaging at back at this time as well. Also,she may continue with Tylenol 1000 mg every 8 hoursand her meloxicam 7.5 mg, 1-2 tabs p.o. daily when needed. Last clinic note reviewed today as well in addition to labs from 12/14/23. 2.Bilateral sacroiliitis As above in #1. Immunizations Given and Recorded Vaccine Date Status Refusal Reason pneumococcal 20-valent conjugate vaccine 11/24/22 Given influenza virus vaccine, inactivated 03/21/21 Give n influenza virus vaccine, inactivated 04/09/20 Give n influenza virus vaccine, inactivated 03/21/19 Give n influenza virus vaccine, inactivated 1 12/30/13 Re corded influenza virus vaccine, inactivated 2 01/17/13 Re corded influenza virus vaccine, inactivated 3 02/14/12 Re corded influenza virus vaccine, inactivated 4 02/14/11 Re corded influenza virus vaccine, inactivated 5 02/03/10 Re corded SARS-CoV-2 (COVID-19) Ad26 vaccine 09/14/20 Record ed zoster vaccine, inactivated 6 08/12/20 Given zoster vaccine, inactivated 04/09/20 Given tetanus/diphtheria/pertuss, acel (Tdap) 7 10/28/15 Recorded 1Result Comment: 2017-09-21: Historical information-source unspecified 2Result Comment: 2017-09-21: Historical information-source unspecified 3Result Comment: 2017-09-21: Historical information-source unspecified 4Result Comment: 2017-09-21: Historical information-source unspecified 5Result Comment: 2017-09-21: Historical information-source unspecified 6Result Comment: adjuvant lot# [id number] 03/04/2022 7Result Comment: 2017-09-21: Historical information-source unspecified Medications amLODIPine 5 mg oral tablet Start: 05/03/23 3:18:00 PM EST, 1 tab, PO, Daily, Disp# 90 tab, Refills: 3, Pharmacy: [id number] Start Date: 05/03/23 Status: Ordered aspirin 81 mg oral tablet Start: 11/08/16 10:09:00 AM EDT, 1 tab, PO, Daily Start Date: 11/08/16 Status: Ordered atorvastatin 20 mg oral tablet Start: 05/31/23 9:30:00 AM EST, 1 tab, PO, qhs, Disp# 90 tab, Refills: 3, Pharmacy: [facility] [id number] Start Date: 05/31/23 Status: Ordered busPIRone 7.5 mg oral tablet Start: 10/26/23 4:06:00 PM EDT, 1 tab, PO, bid, Disp# 180 tab, Refills: 3, Pharmacy: [facility] [id number] Start Date: 10/26/23 Status: Ordered Calcium, Magnesium and Zinc oral tablet Start: 11/08/16 10:09:00 AM EDT, 1 tab, PO, Daily Start Date: 11/08/16 Status: Ordered esomeprazole 20 mg oral delayed release capsule Start: 10/03/19 11:26:00 AM EDT, 1 cap, PO, Daily Start Date: 10/03/19 Status: Ordered hydrochlorothiazide-triamterene 25 mg-37.5 mg oral capsule Start: 08/20/23 11:32:00 AM EDT, 1 cap, PO, bid, Disp# 180 cap, Refills: 3, Pharmacy: [facility] [id number] Start Date: 08/20/23 Status: Ordered levothyroxine 50 mcg (0.05 mg) oral tablet Start: 09/27/23 10:16:00 AM EDT, 1 tab, PO, Daily, Disp# 90 tab, Refills: 1, Pharmacy: [facility] [id number] Start Date: 09/27/23 Status: Ordered losartan 100 mg oral tablet Start: 10/08/23 7:09:00 AM EDT, 1 tab, PO, Daily, Disp# 90 tab, Refills: 3, Pharmacy: [facility] [id number] Start Date: 10/08/23 Status: Ordered meloxicam 7.5 mg oral tablet Start: 01/07/24 10:12:00 AM EDT, 1 tab, PO, Daily, Disp# 90 tab, Refills: 3, Pharmacy: [facility] [id number] Start Date: 01/07/24 Status: Ordered predniSONE 20 mg oral tablet Start: 01/15/24 2:34:00 PM EDT, See Instructions, Disp# 17 tab, 3 tabs PO daily x 2 days, 2 tabs PO daily x 3 days, 1 tab PO daily x 4 days, 0.5 tab PO daily x 4 days, then stop, Pharmacy: [facility] [id number] Start Date: 01/15/24 Status: Ordered sertraline 50 mg oral tablet Start: 07/19/23 1:10:00 PM EDT, 1 tab, PO, Daily, Disp# 90 tab, Refills: 3, Pharmacy: [id number] Start Date: 07/19/23 Stop Date: 07/13/24 Status: Ordered Vitamin D3 Start: 03/21/19 12:59:00 PM EST Start Date: 03/21/19 Status: Ordered Mental Status 01/15/24 Barriers to Learning one year None evide nt Mandatory Health Literacy Documentation Yes Health Literacy Communication Barriers N ever Primary Language Georgian Problem List Condition Confirmation Course Effective Dates Status H ealth Status Informant Pes anserine bursitis Confirmed Active Caregiver stress Confirmed Active Chronic kidney disease stage 3A (disorder) Confirmed Active Benign hypertension with stage 3a chronic kidney disease Confirmed Active Cystourethrocele Confirmed Active Dyspareunia in female Confirmed Active Transaminitis Confirmed Active GERD (gastroesophageal reflux disease) Confirmed Active Rectocele Confirmed Active S/P total knee arthroplasty Confirmed Active Hypothyroidism Confirmed Active Pain of right patellofemoral joint Confirmed Active Anxiety with depression Confirmed Active Normocytic anemia Confirmed Active JHOAN on CPAP Confirmed Active Osteoarthritis of right knee Confirmed Active Left knee pain Confirmed Active Right knee pain Confirmed Active Peripheral edema Confirmed Active Moderate recurrent major depression Confirmed Active Restless leg syndrome Confirmed Active Tear of medial meniscus of knee Confirmed Active Urge incontinence of urine Confirmed Active Vitamin D deficiency Confirmed Active Diagnosis Diagnosis Type Effective Dates Health Status Clinical Service Informant Acute low back pain Discharge Diagnosis 01/15/24 Non-Specified Bilateral sacroiliitis Discharge Diagnosis 01/15/24 Non-Specified Procedures Procedure Date Related Diagnosis Body Site Status Mammogram 1 06/25/23 Completed Ultrasound scan of upper abdomen 2 12/06/22 Completed Right total knee arthroplasty 3 11/11/20 Completed Mammogram 4 11/08/18 Completed Colonoscopy 5 09/24/18 Completed MRI of right knee 6 09/17/17 Compl eted Venous doppler ultrasonography 7 09/10/17 Completed Full sleep study 8 05/11/11 Comple carlo Cystopexy Completed H/O: hysterectomy Complet ed Total hysterectomy Comple carlo [address] [place] [address] Impression: ACR BI-RADS CATEGORY 2: BENIGN 1. No evidence of malignancy [address] [place] [address] Impression: 1. Hepatic steatosis 2. Cholelithiasis.No gallbladder thickening [address] [place] [address] Right knee 4IMPRESSION: ACR BI-RADS CATEGORY 2: BENIGN There is no mammographic evidence of malignancy. Prior outside mammograms are currently being requessted and if obtained they will be reviewed, compared to te current exam to assess for any more subtle changes, and an addendum will be made to this report. Otherwise, a 1 year screening mammogram is recommended. The patient will receive written notification of the results. 5[facility] Impression: 1. Entire examined colon is normal 2. No specimens collected Repeat in 10 years 6[facility] Impression: 1. Focal defect/complex tear within the posterior horn of the medial meniscus 2. Tricompartmental osteoarthritis as described above most pronounced within the medial compartmentwhere there is full-thickness cartilage loss 3. Moderate joint effusion 4. No fracture or dislocation 7[facility] Impression: 1 No DVT within the right lower extremity 81. Improved sleep architecture with CPAP. 2. Resolved sleep disorder breathingg with optimal pressure judged to be 9cm using a ResMEd Mirage FX "for her" mask. Recommendations: 1. CPAP at 9cm, mask noted above. Vital Signs Most recent to oldest [Reference Range]: 1 Patient Weight 84.7 kg (01/15/24 2:09 PM) Temperature [36.5-37.9 DegC] 36.6 DegC (01/15/24 2:09 PM) Heart Rate 84 bpm (01/15/24 2:09 PM) Respiratory Rate 20 br/min (01/15/24 2:09 PM) Blood Pressure 150/78mmHg (01/15/24 2:09 PM) Cuff Pulse Pressure 72 mmHg (01/15/24 2:09 PM) BP Location # 1 Left Arm, Manual (01/15/24 2:09 PM) Social History Social History Type Response Smoking Status Never smoked cigaret gely Sex Female Sex Representation Female (finding) [facility] Note * JENNIFER Locke, Angelina Remy: PERFORM Event Display: [facility] Note Authored Date: [id number] Chief Complaint Bilateral hip pain History of Present Illness Pat developedbilaterallow back pain x1.5 to 2 weeks ago that has gotten progressively worse. Earlier this month she was on a cruise andwhileascending stairs she missed a stepand fell forward landing on both knees. She had no pain in her back initially, buta few days later started to develop mid, bilateral low back pain radiatinginto her buttocks and occasionallyto posteriorthighs.She has no pain with sitting or standing, but otherwise haspersistent painthat is worse withprolonged standing, walking and position changes. Describes it as "nagging," and sharp. Pain varies from a 3-6/10. She has tried using [id number] mg daily to 3 times daily that"takes the edge off." And some topical pain relievers. Chronically takes meloxicam 7.5 mg daily forarthritis pain. Non-smoker. No known history of osteoporosis. No fever, chills, lateral hip pain,fecal incontinence, urinary incontinence, urinary retention, saddle anesthesia, extremity weakness, extremity numbness/tingling, claudication, loss of balance,dysuria, hematuriaor nocturnal pain/awakenings. Review of Systems ROS:All other systems negative, except HPI. Physical Exam Vitals & Measurements T:36.6C HR:84(Monitored) RR:20 BP:150/78 SpO2:96% WT:84.700kg(Dosing) WT:84.7kg PHQ2 Data(Data Documented on:01/15/2024 14:09) Emotional health assessment NEGATIVE General: Alert and oriented, No acute distress.Pleasant. Eye: Pupils are equal, round and reactive to light, Extraocular movements are intact, Normal conjunctiva. HENT: Normocephalic. Respiratory: Lungs are clear to auscultation, Respirations are non-labored, Breath sounds are equal, Symmetrical chest wall expansion. Cardiovascular: Normal rate, Regular rhythm, No murmur, No gallop, Good pulses equal in all extremities, Normal peripheral perfusion. Musculoskeletal Antalgic gait.FROM and 5/5 strength at BLE and BUE.Decreased ROM of lumbar spine in all directions secondary to pain. Negative seated straight leg raise. There is point tenderness over distallumbar spinous processes, sacrum and with increased pain/point tenderness over bilateral SI jointsand across iliac crest. No tenderness over greater trochanters. Integumentary: Warm, [place], No pallor. Neurologic: Alert, Oriented, Cranial Nerves II-XII are grossly intact. Cognition and Speech: Oriented, Speech clear and coherent, Functional cognition intact. Psychiatric: Cooperative, Appropriate mood & affect, Normal judgment, Nonsuicidal. Assessment/Plan 1.Acute low back pain Patient has acute low back pain with bilateral sacroiliitisthat is uncontrolled and goal is resolution of symptoms. Patient was given a prescription for prednisone 20 mg,3 tabs p.o. daily x 2 days,2 tabs p.o. daily x3 days, 1 tab p.o. daily x 4 days and 0.5 tab p.o. daily x 4 days. She is a known type II diabetic, but this has been very well-controlled with last A1c of 5.8%.Labs from 12/14/2023 reviewed today. Encouraged gentle stretching and activity as tolerated. We did discuss proceeding with referral for physical therapyor she could consider seeing a chiropractor; patient opts for the latter and will plan to self schedule. Advised to contact the office if symptomsare not improvingafter 2 to 3 weeks, worsen or change. Declines imaging at back at this time aswell. Also,she may continue with Tylenol 1000 mg every 8 hoursand her meloxicam 7.5 mg, 1-2 tabs p.o.daily when needed. Last clinic note reviewed today as well in addition to labs from 12/14/23. 2.Bilateral sacroiliitis As above in #1. Problem List/Past Medical History Ongoing Anxiety with depression Benign hypertension with stage 3a chronic kidney disease Caregiver stress Chronic kidney disease stage 3A (disorder) Cystourethrocele Dyspareunia in female GERD (gastroesophageal reflux disease) Hypothyroidism Left knee pain Moderate recurrent major depression Normocytic anemia JHOAN on CPAP Osteoarthritis of right knee Pain of right patellofemoral joint Peripheral edema Pes anserine bursitis Rectocele Restless leg syndrome Right knee pain S/P total knee arthroplasty Tear of medial meniscus of knee Transaminitis Urge incontinence of urine Vitamin D deficiency Resolved Anxiety and depression Anxious depression Procedure/Surgical History Mammogram| Service Date: 06/25/2023Ultrasound scan of upper abdomen| Service Date: 12/06/2022Right total knee arthroplasty| Service Date: 11/11/2020Mammogram| Service Date: 11/08/2018Colonoscopy| Service Date: 09/24/2018MRI of right knee| Service Date: 09/17/2017Venous doppler u ltrasonography| Service Date: 09/10/2017Full sleep study| Service Date: 05/11/2011CystopexyH/O: hysterectomyTotal hysterectomy Medications amLODIPine(amLODIPine 5 mg oral tablet), 1 tab, PO, Daily aspirin(aspirin 81 mg oral tablet), 81 mg= 1 tab, PO, Daily atorvastatin(atorvastatin 20 mg oral tablet), 1 tab, PO, qhs busPIRone(busPIRone 7.5 mg oral tablet), 1 tab, PO, bid cholecalciferol(Vitamin D3) esomeprazole(esomeprazole 20 mg oral delayed release capsule), 20 mg= 1 cap, PO, Daily hydrochlorothiazide-triamterene(hydrochlorothiazide-triamterene 25 mg-37.5 mg oral capsule), 1 cap,PO, bid levothyroxine(levothyroxine 50 mcg (0.05 mg) oral tablet), 1 tab, PO, Daily losartan(losartan 100 mg oral tablet), 1 tab, PO, Daily meloxicam(meloxicam 7.5 mg oral tablet), 1 tab, PO, Daily multivitamin with minerals(Calcium, Magnesium and Zinc oral tablet), 1 tab, PO, Daily predniSONE(predniSONE 20 mg oral tablet), See Instructions sertraline(sertraline 50 mg oral tablet), 50 mg= 1 tab, PO, Daily, 3 refills Allergies No Known Medication Allergies Social History Smoking Status Never smoked cigarettes Alcohol - Denies Alcohol Use Employment/School Status:Employed Description:Works at [employer] Exercise - Does not exercise Exercise type:Walking Home/Environment Lives with:Alone Living situation:Home/Independent Feels unsafe at home:No - Comments: Home has smoke and CO detectors. Has [employer] System. Wears seatbelt. Uses sun protection "sometimes." Nutrition/Health Type of diet:Regular Caffeine intake amount:Drinks 3 cups coffee/day Other Details:Has not had a blood transfusion. No tattoos and has not be incarcerated. Negative HIV and hepatitis C screening in 2017. Sexual Sexually active:No Substance Abuse - Denies Substance Abuse Tobacco - Denies Tobacco Use Family History Hypertension: Mother, Father, Sister and Brother. Type II diabetes mellitus: Father. Health Status Family Member(s) Immunizations Vaccine Date Status pneumococcal 20-valent conjugate vaccine 11/24/2022 Given influenza virus vaccine, inactivated 03/21/2021 Given SARS-CoV-2 (COVID-19) Ad26 vaccine 09/14/2020 Recorded zoster vaccine, inactivated 08/12/2020 Given Comments : adjuvant lot# [id number] exp 03/04/2022 zoster vaccine, inactivated 04/09/2020 Given influenza virus vaccine, inactivated 04/09/2020 Given influenza virus vaccine, inactivated 03/21/2019 Given tetanus/diphtheria/pertuss, acel (Tdap) 10/28/2015 Recorded Comments : 2017-09-21: Historical information-source unspecified influenza virus vaccine, inactivated 12/30/2013 Recorded Comments : 2017-09-21: Historical information-source unspecified influenza virus vaccine, inactivated 01/17/2013 Recorded Comments : 2017-09-21: Historical information-source unspecified influenza virus vaccine, inactivated 02/14/2012 Recorded Comments : 2017-09-21: Historical information-source unspecified influenza virus vaccine, inactivated 02/14/2011 Recorded Comments : 2017-09-21: Historical information-source unspecified influenza virus vaccine, inactivated 02/03/2010 Recorded Comments : 2017-09-21: Historical information-source unspecified Recommendations Health Maintenance Pending(in the next year) OverDue Body Mass Index due09/10/22and every 366day Adult Influenza Vaccine due10/28/23and every 1year Due Adult COVID-19 Vaccination due01/15/24Unknown Frequency Adult Social Determinants of Health Screening due01/15/24Unknown Frequency Medicare Annual Wellness Visit due01/15/24and every 1year Osteoporosis Screening due01/15/24One-time only Satisfied(in the past 1 year) Satisfied Breast Cancer Screening on06/27/23.Satisfied by BRADLEY Osuna Andrew E Diabetes Management A1c on12/14/23.Satisfied by Contributor_system, [email or web address] Diabetes Nephropathy Management on12/14/23.Satisfied by Contributor_system, [email or web address] Patient Care team information Care Team Personnel Name: JENNIFER Locke, Angelina Remy Position: Physician Asst Lu - Family Med Member Role: Primary Care Provider [address]: [address] [place] [address], [place] [address] Care Team Related Persons Name: BRENDON GONZALEZ
--- OUTSIDE RECORDS SUMMARY | 2024-01-30 18:44 | External Medical Summary | Continuity of Care Document ---
Author Name Unknown Organization [facility] [address] [facility] Address [address] [place], [place] [id number] Care Team Providers Care Drapery Rod Assembler Name Role Phone Angelina Locke Primary Care Physician [phone] Encounter [facility] [id number] Date(s): 12/14/23 - 12/14/23 [facility] [address], [address] [place] [address] [phone] Encounter Diagnosis Well adult exam(Discharge Diagnosis) - 12/14/23 Benign hypertension with stage 3a chronic kidney disease(Discharge Diagnosis) - 12/14/23 Hypothyroidism(Discharge Diagnosis) - 12/14/23 Moderate recurrent major depression(Discharge Diagnosis) - 12/14/23 Type 2 diabetes mellitus with diabetic chronic kidney disease(Final) - JHOAN on CPAP(Discharge Diagnosis) - 12/16/23 Type 2 diabetes mellitus with stage 3a chronic kidney disease and hypertension (Discharge Diagnosis) - 12/16/23 Type 2 diabetes with stage 3 chronic kidney disease GFR 30-59(Discharge Diagnosis) - 12/14/23 Bereavement(Discharge Diagnosis) - 12/16/23 Discharge Disposition: Home or Self Care Attending Physician: JENNIFER Locke Jessica A Allergies, Adverse Reactions, Alerts No Known Medication Allergies Assessment and Plan Extracted from: Title:CPE Author:JENNIFER Locke Jessica A Date:12/14/23 1.Well adult exam Age-appropriate immunizations are UTD. Encouraged to continue routine eye care. Pap smear for cervical cancer screening is no longer needed as patienthas had a hysterectomy. Encouraged to continue annual mammography for breast cancer screening. Colonoscopy is UTD will be due for repeat in 2028. 2.Benign hypertension with stage 3a chronic kidney disease Benign hypertension with stage IIIa CKDis chronic and well-controlled with amlodipine 5 mg daily and losartan 100 mg daily. To continue current regimen and follow-up again in 6 months. 3.Hypothyroidism Hypothyroidism is chronic and stable with levothyroxine 50 mcg daily. Goal is euthyroidism. Updated TSH ordered. 4.Moderate recurrent major depression Moderate, recurrent major depressive disorderhas been stable with sertraline 50 mg dailyand buspirone 7.5 mg twice daily. Her has in the last few months, so doeshave down days, but feels mood is overall stable. Has a good support system. 5.Type 2 diabetes with stage 3 chronic kidney disease GFR 30-59 Type 2 diabetes with stage IIIa CKD and HTN is chronic and well-controlled without pharmacotherapy. Updated A1c, CMP, TSH and urine microalbumin ordered. Lipid profile is UTD. RTC in 6 months and sooner if needed. 6.Type 2 diabetes mellitus with stage 3a chronic kidney disease and hypertension As above in #5. 7.JHOAN on CPAP JHOAN is stable w/ use of CPAP device and encouraged to continue wearing this during sleeping hours. 8.Bereavement Patient continues to grieve the loss of herhusband's, but feels she is managingwell and as expected. Has a good support system. Encouraged her to contact the office if we can be of anyassistance. Immunizations Given and Recorded Vaccine Date Status [...] Daily, Disp# 90 tab, Refills: 3, Pharmacy: [id number] Start Date: 05/03/23 Status: Ordered aspirin 81 mg oral tablet Start: 11/08/16 10:09:00 AM EDT, 1 tab, PO, Daily Start Date: 11/08/16 Status: Ordered atorvastatin 20 mg oral tablet Start: 05/31/23 9:30:00 AM EST, 1 tab, PO, qhs, Disp# 90 tab, Refills: 3, Pharmacy: [place] [facility] [id number] Start Date: 05/31/23 Status: Ordered busPIRone 7.5 mg oral tablet Start: 10/26/23 4:06:00 PM EDT, 1 tab, PO, bid, Disp# 180 tab, Refills: 3, Pharmacy: [facility] Start Date: 10/26/23 Status: Ordered Calcium, Magnesium and Zinc oral tablet Start: 11/08/16 10:09:00 AM EDT, 1 tab, PO, Daily Start Date: 11/08/16 Status: Ordered esomeprazole 20 mg oral delayed release capsule Start: 10/03/19 11:26:00 AM EDT, 1 cap, PO, Daily Start Date: 10/03/19 Status: Ordered FLUoxetine 40 mg oral capsule Start: 10/15/23 9:30:00 AM EDT, 2 cap, PO, Daily, Disp# 180 cap, Refills: 3, Pharmacy: [place] [id number] Start Date: 10/15/23 Status: Ordered hydrochlorothiazide-triamterene 25 mg-37.5 mg oral capsule Start: 08/20/23 11:32:00 AM EDT, 1 cap, PO, bid, Disp# 180 cap, Refills: 3, Pharmacy: [place] [id number] Start Date: 08/20/23 Status: Ordered levothyroxine 50 mcg (0.05 mg) oral tablet Start: 09/27/23 10:16:00 AM EDT, 1 tab, PO, Daily, Disp# 90 tab, Refills: 1, Pharmacy: [id number] Start Date: 09/27/23 Status: Ordered losartan 100 mg oral tablet Start: 10/08/23 7:09:00 AM EDT, 1 tab, PO, Daily, Disp# 90 tab, Refills: 3, Pharmacy: [id number] Start Date: 10/08/23 Status: Ordered meloxicam 7.5 mg oral tablet Start: 10/12/23 5:03:00 PM EDT, 1 tab, PO, Daily, Disp# 90 tab, Refills: 0, Pharmacy: [id number] Start Date: 10/12/23 Stop Date: 01/10/24 Status: Ordered sertraline 50 mg oral tablet Start: 07/19/23 1:10:00 PM EDT, 1 tab, PO, Daily, Disp# 90 tab, Refills: 3, Pharmacy: [id number] Start Date: 07/19/23 Stop Date: 07/13/24 Status: Ordered Vitamin D3 Start: 03/21/19 12:59:00 PM EST Start Date: 03/21/19 Status: Ordered Mental Status 12/14/23 Barriers to Learning one year None evide nt Mandatory Health Literacy Documentation Yes Health Literacy Communication Barriers N ever Primary Language Upper Sorbian Problem List Condition Confirmation Course Effective Dates [...] of medial meniscus of knee Confirmed Active Type 2 diabetes mellitus with stage 3a chronic kidney disease and hypertension Confirmed Active Urge incontinence of urine Confirmed Active Vitamin D deficiency Confirmed Active Diagnosis Diagnosis Type Effective Dates Health Status Clinical Service Informant Benign hypertension with stage 3a chronic kidney disease Discharge Diagnosis 12/14/23 Non-Specified Well adult exam Discharge Diagnosis 12/14/23 Non-Specified Hypothyroidism Discharge Diagnosis 12/14/23 Non-Specified Moderate recurrent major depression Discharge Diagnosis 12/14/23 Non-Specified Type 2 diabetes with stage 3 chronic kidney disease GFR 30-59 Discharge Diagnosis 12/14/23 Non-Specified Type 2 diabetes mellitus with stage 3a chronic kidney disease and hypertension Discharge Diagnosis 12/16/23 Non-Specified JHOAN on CPAP Discharge Diagnosis 12/16/23 Non-Specified Bereavement Discharge Diagnosis 12/16/23 Non-Specified Procedures Procedure Date Related Diagnosis Body [...] hysterectomy Complet ed Total hysterectomy Comple carlo [address] [place] [address] Impression: ACR BI-RADS CATEGORY 2: BENIGN 1. No evidence of malignancy [address] [place] [address] Impression: 1. Hepatic steatosis 2. Cholelithiasis.No gallbladder thickening [address] [place] [address] Right knee 4IMPRESSION: ACR BI-RADS CATEGORY 2: [...] No specimens collected Repeat in [address] [place] [address] Impression: 1. Focal defect/complex tear within the posterior horn of the medial meniscus 2. Tricompartmental osteoarthritis as described above most pronounced within the medial compartmentwhere there is full-thickness cartilage loss 3. Moderate joint effusion 4. No fracture or dislocation [facility] Impression: 1 No DVT within the right lower extremity 81. Improved sleep architecture with CPAP. 2. Resolved sleep disorder breathingg with optimal pressure judged to be 9cm using a ResMEd Mirage FX "for her" mask. Recommendations: 1. CPAP at 9cm, mask noted above. Results Laboratory List Name Date Comprehensive Metabolic Panel (COMP META B PANEL) 12/14/23 Hemoglobin A1C (HEMOGLOBIN, A1C) 12/14/23 Microalbumin, Urine, Random (MICROALBUMI N, RD UR) 12/14/23 Thyroid Stimulating Hormone (TSH) 4 Most recent to oldest [Reference Range]: 1 eGFR CKD-EPI [>60 mL/min/1.73 m2] 42 mL/ min/1.73 m2 1 *LOW* (12/14/23 3:35 PM) Estimated Average Glucose 120 mg/dL (12/14/23 3:35 PM) Estimated CrCl 39.59 mL/min (12/14/23 4:07 PM) Micro Alb (u) [<2.00 mg/dL] <1.20 mg/dL (12/14/23 3:35 PM) Anion Gap [5-14 mmol/L] 8 mmol/L (12/14/23 3:35 PM) Alb [3.5-5.0 g/dL] 4.3 g/dL (12/14/23 3:35 PM) Alk Phos [38-126 unit/L] 75 unit/L (12/14/23 3:35 PM) ALT [<35 unit/L] 56 unit/L *HI* (12/14/23 3:35 PM) AST [15-46 unit/L] 51 unit/L *HI* (12/14/23 3:35 PM) BUN [7-20 mg/dL] 37 mg/dL *HI* (12/14/23 3:35 PM) Ca [8.4-10.2 mg/dL] 9.5 mg/dL (12/14/23 3:35 PM) Cl- [96-107 mmol/L] 107 mmol/L (12/14/23 3:35 PM) HCO3 [22-30 mmol/L] 22 mmol/L (12/14/23 3:35 PM) Cret [0.60-1.00 mg/dL] 1.38 mg/dL *HI* (12/14/23 3:35 PM) HbA1c [<5.7 %] 5.8 % 2 *HI* (12/14/23 3:35 PM) Glu [74-106 mg/dL] 99 mg/dL (12/14/23 3:35 PM) K [3.5-5.1 mmol/L] 4.1 mmol/L (12/14/23 3:35 PM) Micro Alb Ratio [<20 ug/mg cret] NOT URSZULA CULATED ug/mg cret (12/14/23 3:35 PM) Na [137-145 mmol/L] 137 mmol/L (12/14/23 3:35 PM) T Bili [0.2-1.3 mg/dL] 0.4 mg/dL (12/14/23 3:35 PM) Prot [6.3-8.2 g/dL] 7.6 g/dL (12/14/23 3:35 PM) TSH [0.47-4.68 uIU/mL] 1.56 uIU/mL 3 (12/14/23 3:35 PM) Creat (u) 84.36 mg/dL 4 (12/14/23 3:35 PM) 1Result Comment: Testing Performed By: Dept of Pathology [facility] Carlene Azevedo, [address] [facility] [place] [address] 2Result Comment: ADA Recommended [place] Reference Range: Normal: <5.7% Prediabetes: 5.7-6.4% Diabetes: >6.4% 3Result Comment: Testing Performed By: Dept of Pathology [facility] Carlene Azevedo, [address] [facility] [place] [address] 4Result Comment: Reference Range for Random Urine Not Established. Vital Signs Most recent to oldest [Reference Range]: 1 Patient Weight 81 kg (12/14/23 2:47 PM) Heart Rate 91 bpm (12/14/23 2:47 PM) Blood Pressure 126/62mmHg (12/14/23 2:47 PM) BP Location # 1 Left Arm (12/14/23 2:47 PM) Social History Social History Type Response Smoking Status Never smoked cigaret gely Sex Female Sex Representation Female (finding) FCM Note * JENNIFER Locke, Angelina Remy: PERFORM Event Display: FCM Note Authored Date: [id number] Chief Complaint wants a check up. leaving for a cruise, BP 133/80 at home, no symptoms CPAP regalarly History of Present Illness Sabrina is here for her complete physical examination. Wears glasses and is getting eye exams every 2 years w/ [facility]. Has upper and lower dentures. Last Tdap was in 2015. Had varicella as a child. Has not had a shingles vaccine. Menarche at 13 yo. Had a hysterectomy in the 1970s due to uterine fibroids. Has ovaries. Has not taken HRT. No hot flashes, night sweats, height loss or fractures. Takes both calcium and vitamin D supplements. No PMH of abnormal pap smears. She does not perform SBEs. No breast pain, tenderness, nipple discharge, retraction or rashes. Had a mammogram in fall/winter May 2023.Colonoscopy was completed in 2018 and negative. No FmHx of breast, colon or ovarian cancer. 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 Feels as though she is doingfairly well emotionally. Has good days and bad days, butis at peace withhis passing. Has a good support system with some family. Continues to work full-time andnotes that she will be going on a cruise in the next few months, which she is looking forward to. Does struggle with sleep and loss of appetitesince his , but"I because I have to." She does chronically takesertralineand buspirone for moderate, major depressive disorderand does not feel she needs any adjustment in medication at this time. No thoughts of self-harm, SI or HI. Type 2 diabetes is chronic and has been stable without pharmacotherapy. Due for updated A1c. Inthe past she had taken metformin, which was discontinued due to renal insufficiency with GFRdropped into the 30s. Does not monitor glucose at home. See social history embedded in note. Nohypoglycemic episodes, polyuria, polydipsia, polyphagia, numbness/tingling in extremities, poor healing wounds, foot ulcerations, blurred vision, loss of vision, chest pain, SOB, palpitations, tachycardia, loss of balance or falls. JHOAN is chronic and managed with use of CPAP device that she has been using more consistentlysinceher . 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 She is not getting more consistent sleep with CPAP device. Hypertension without congestive heart failure is chronic and well-controlled. Checks BP at home that typically runsaround 133/80s. Compliant with amlodipine 5 mg daily and losartan 100 mg daily. Seesocial history embedded in note. + occ.LE edema that is stable. No claudication,chest pain, SOB, palpitations, tachycardia, dizziness, lightheadedness, weakness, near syncope, syncope, nausea, vomiting, diarrhea, constipation, cough, headaches, blurred vision, loss of vision, confusion or epistaxis. d stable with levothyroxine 50 mcg, 1 tab p.o. daily. + chronic fatigue as above Review of Systems ROS:All other systems negative, except HPI. Physical Exam Vitals & Measurements HR:91(Monitored) BP:126/62 SpO2:97% WT:81.000kg(Dosing) WT:81kg General: Alert and oriented, No acute distress.Pleasant. Tearful at times. Eye: Pupils are equal, round and reactive to light, Extraocular movements are intact, Normal conjunctiva. HENT: Normocephalic. TMs clear bilaterally. Posterior pharynx is pink. Uvula rises midline. No drooling, stridor or cyanosis. Neck: Supple, No lymphadenopathy, No thyromegaly. Respiratory: Lungs are clear to auscultation, Respirations are non-labored, Breath sounds are equal, Symmetrical chest wall expansion. Cardiovascular: Normal rate, Regular rhythm, No murmur, No gallop, Good pulses equal in all extremities, Normal peripheral perfusion. No LE edema. Abdomen: Normoactive BS x 4. Soft. No tenderness, palpable masses or organomegaly. Lymphatics: No submandibular, anterior or posterior cervical adenopathy palpable. Musculoskeletal Normal gait. FROM and 5/5 strength at BLE and BUE. Integumentary: Warm, [place], No pallor. Neurologic: Alert, Oriented, Cranial Nerves II-XII are grossly intact. Cognition and Speech: Oriented, Speech clear and coherent, Functional cognition intact. Psychiatric: Cooperative, Appropriate mood & affect, Normal judgment, Nonsuicidal. Assessment/Plan 1.Well adult exam Age-appropriate immunizations are UTD. Encouraged to continue routine eye care. Pap smear forcervical cancer screening is no longer needed as patienthas had a hysterectomy. Encouraged to continue annual mammography for breast cancer screening. Colonoscopy is UTD will be due for repeat in 2028. 2.Benign hypertension with stage 3a chronic kidney disease Benign hypertension with stage IIIa CKDis chronic and well-controlled with amlodipine 5 mg daily and losartan 100 mg daily. To continue current regimen and follow-up again in 6 months. 3.Hypothyroidism Hypothyroidism is chronic and stable with levothyroxine 50 mcg daily. Goal is euthyroidism. Updated TSH ordered. 4.Moderate recurrent major depression Moderate, recurrent major depressive disorderhas been stable with sertraline 50 mg dailyand buspirone 7.5 mg twice daily. Her has in the last few months, so doeshave down days, but feels mood is overall stable. Has a good support system. 5.Type 2 diabetes with stage 3 chronic kidney disease GFR 30-59 Type 2 diabetes with stage IIIa CKD and HTN is chronic and well-controlled without pharmacotherapy. Updated A1c, CMP, TSH and urine microalbumin ordered. Lipid profile is UTD. RTC in 6 monthsand sooner if needed. 6.Type 2 diabetes mellitus with stage 3a chronic kidney disease and hypertension As above in #5. 7.JHOAN on CPAP JHOAN is stable w/ use of CPAP device and encouraged to continue wearing this during sleeping hours. 8.Bereavement Patient continues to grieve the loss of herhusband's, but feels she is managingwell and as expected. Has a good support system. Encouraged her to contact the office if we can be of anyassistance. Problem List/Past Medical History Ongoing Anxiety with [...] Tear of medial meniscus of knee Transaminitis Type 2 diabetes mellitus with stage 3a chronic kidney disease and hypertension Urge incontinence of urine Vitamin D deficiency [...] capsule), 20 mg= 1 cap, PO, Daily FLUoxetine(FLUoxetine 40 mg oral capsule), 2 cap, PO, Daily hydrochlorothiazide-triamterene(hydrochlorothiazide-triamterene 25 mg-37.5 mg oral capsule), 1 cap,PO, bid levothyroxine(levothyroxine 50 mcg (0.05 mg) oral tablet), 1 tab, PO, Daily losartan(losartan 100 mg oral tablet), 1 tab, PO, Daily meloxicam(meloxicam 7.5 mg oral tablet), 1 tab, PO, Daily multivitamin with minerals(Calcium, Magnesium and Zinc oral tablet), 1 tab, PO, Daily sertraline(sertraline 50 mg oral tablet), 50 mg= 1 tab, PO, Daily, 3 refills Allergies No Known Medication Allergies Social History Smoking Status Never smoked cigarettes Alcohol - Denies Alcohol Use Employment/School Status:Employed Description:Works at [employer] Exercise - Does not exercise Exercise type:Walking Home/Environment Lives with:Alone Living situation:Home/Independent Feels unsafe at home:No - Comments: Home has smoke and CO detectors. Has [employer] Security System. Wears seatbelt. Uses sun protection [...] OverDue Body Mass Index due09/10/22and every 366day Diabetic Eye Exam due12/18/22and every 731day Adult Influenza Vaccine due10/28/23and every 1year Due Adult COVID-19 Vaccination due12/16/23Unknown Frequency Adult Social Determinants of Health Screening due12/16/23Unknown Frequency Medicare Annual Wellness Visit due12/16/23and every 1year Osteoporosis Screening due12/16/23One-time only Due In Future Diabetes Management A1c not due until12/14/24and every 366day Satisfied(in the past 1 year) Satisfied Breast Cancer Screening on06/27/23.Satisfied by BRADLEY Osuna Andrew E Diabetes Management A1c on12/14/23.Satisfied by Contributor_system, [id number] Diabetes Nephropathy Management on12/14/23.Satisfied by Contributor_system, [id number] Patient Care team information Care Team Personnel Name: JENNIFER Locke, Angelina Remy Position: Physician Asst Tabitha - Family Med Member Role: Primary Care Provider Address: [address] [place] [id number] [place] Care Team Related Persons Name: BRENDON GONZALEZ
[2024-01-30] MEDS: ACETAMINOPHEN 325 MG TAB PO PRN (20:03)
[2024-01-30] MEDS: ATORVASTATIN 20 MG TAB PO SCH (20:04)
[2024-01-30] MEDS: busPIRone 7.5 MG TAB PO SCH (20:05)
[2024-01-30] MEDS: ENOXAPARIN INJ 40 MG/0.4 ML SYR SQ SCH (20:06)
[2024-01-30] MEDS: MAGNESIUM SULFATE / D5W 1 GM/100 ML BAG IV SCH (21:47)
[2024-01-31 03:24] LABS: A calco-baum cmplx NotReported Not Detected (NotDetected); Bact fragilis Not Reported Not Detected (NotDetected); Blood Culture Id Panel See PCR Comment (NotDetected); C auris Not Reported Not Detected (NotDetected); CTX-M Resistant Gene Not Detected (NotDetected); Calbicans Not Reported Not Detected (NotDetected); Candida glabrata Not Reported Not Detected (NotDetected); Candida krusei Not Reported Not Detected (NotDetected); Cneoformans/gatti Not Reported Not Detected (NotDetected); Cparapsilosis Not Reported Not Detected (NotDetected); E cloacae compx Not Reported Not Detected (NotDetected); Efaecalis Not Reported Not Detected (NotDetected); Efaecium Not Reported Not Detected (NotDetected); Enterobacterales DETECTED (NotDetected); Enterobacterales Not Reported DETECTED (NotDetected); Escherichia coli Not Reported DETECTED (NotDetected); H influenzae Not Reported Not Detected (NotDetected); IMP Resistant Gene Not Detected (NotDetected); K aerogenes Not Reported Not Detected (NotDetected); KPC Resistant Gene Not Detected (NotDetected); Koxytoca Not Reported Not Detected (NotDetected); Kpneumoniae grp Not Reported Not Detected (NotDetected); Lmonocyt Not Reported Not Detected (NotDetected); N meningitidis Not Reported Not Detected (NotDetected); NDM Resistant Gene Not Detected (NotDetected); OXA 48 Like Resistant Gene Not Detected (NotDetected); P aeruginosa Not Reported Not Detected (NotDetected); Proteus spp Not Reported Not Detected (NotDetected); Salmonella spp Not Reported Not Detected (NotDetected); Staph lugdunensis Not Reported Not Detected (NotDetected); Staph spp. Not Reported Not Detected (NotDetected); Staphaureus Not Reported Not Detected (NotDetected); Staphepi Not Reported Not Detected (NotDetected); Stenmaltophilia Not Reported Not Detected (NotDetected); Strep agal(GrpB) Not Reported Not Detected (NotDetected); Strep pneum Not Reported Not Detected (NotDetected); Strep pyog (GrpA) Not Reported Not Detected (NotDetected); Strep spp Not Reported Not Detected (NotDetected); VIM Resistant Gene Not Detected (NotDetected); mcr-1 Colistin Resistant Gene Not Detected (NotDetected)
[2024-01-31] MEDS: LEVOTHYROXINE SODIUM 50 MCG TABLET PO SCH (06:27)
[2024-01-31 07:21] LABS: Basophils # (auto) 0.01 K/uL (0.00-0.20); Basophils % (auto) 0.1 %; Hematocrit (blood only) 31.3 % (37.0-47.0); Hemoglobin 10.2 g/dl (12.0-16.0); Immature Granulocytes # (auto) 0.04 K/uL (0.01-0.20); Immature Granulocytes % (auto) 0.4 %; Lymphocytes # (auto) 1.39 K/uL (1.20-3.40); Lymphocytes % (auto) 14.2 %; Mean Corpuscular Hgb Conc 32.6 g/dL (32.0-36.0); Mean Corpuscular Volume 88.9 fL (80.0-100.0); Mean Platelet Volume 10.3 fL (9.4-12.4); Monocytes # (auto) 0.76 K/uL (0.11-0.59); Monocytes % (auto) 7.8 %; Neutrophils # (auto) 7.46 K/uL (1.40-6.50); Neutrophils % (auto) 76.5 %; Platelet Count 115 K/uL (130-400); RDW Coefficient of Variation 14.4 % (11.5-14.5); RDW Standard Deviation 46.3 fL (36.4-46.3); Red Blood Count 3.52 M/uL (4.20-5.40); White Blood Count 9.76 K/ul (4.8-10.8)
[2024-01-31 07:39] LABS: Albumin Globulin Ratio 1.4 (0.9-2); Albumin Level 3.7 gm/dl (3.4-5.0); BUN Creatinine Ratio 23.7 (10-20); Bilirubin,Total 0.4 mg/dl (0.2-1.0); Calcium 8.8 mg/dl (8.6-10.3); Creatinine Clr Calc Pharmacy 57.6 ml/min; Globulin 2.6 gm/dl (2.5-4.0); Magnesium 2.1 mg/dl (1.7-2.4); Potassium 4.2 mmol/L (3.5-5.1); Total Protein 6.3 gm/dl (6.0-8.3)
[2024-01-31 07:53] LABS: Thyroid Stimulating Hormone 1.322 uIu/ml (0.300-4.500)
[2024-01-31] MEDS: MELOXICAM 7.5 MG TAB PO SCH (08:20)
--- NOTE | 2024-01-31 08:40 | Hospitalist Progress Note ---
Date of Service January 31, 2024 Assessment & Plan (1) Sepsis: Plan: SIRS criteria with HR and WBC, suspected urinary source will need imaging to determine if anatomic abnormality gram negative bacteremia confirmed suspected to be E coli pcr Empiric antibiotics targeted to UTI as suspected source (although no specific urinary complaints, UA is grossly infected appearing) - ceftriaxone 2g IV daily renal ultrasound does not show significant changes (2) Sleep apnea: Plan: CPAP HS (3) HTN (hypertension): Plan: continue to hold her anti-hypertensives other than amlodipine, restart as able per serial BP measurements (4) Hypothyroidism: Plan: TSH with AM labs Continue levothyroxine Plan Anxiety and depression - continue sertraline and BuSpar Hyperlipidemia - continue atorvastatin VTE prophylaxis - Lovenox 40 mg subcu daily Diet - regular Admission and Anticipated Discharge Date Admission Date: January 30, 2024 Subjective pt feels greatly improved, still does not endorse any significant urinary symptoms Physical Exam 2 Physical Exam: pt is without distress cardiac is regular lungs clear abd is soft and non tender Results & Data Results & Data Vital Signs (Past 12 Hours) Vital Signs Temp Pulse Pulse Resp BP Pulse Ox O2 Del Method 01/31/24 08:00 99.5 F 95 H 16 148/72 H 94 Room Air 01/31/24 07:33 94 H 01/31/24 04:18 99.5 F 94 H 19 157/78 H 93 Room Air 01/31/24 00:32 91 H 01/30/24 23:27 100.0 F H 92 H 18 154/73 H 95 Room Air Laboratory Results review cbc review chemistry PG Care Time/CCT Total # of Minutes Spent Total Time Spent with Patient: Total time spent is greater than 50% in coordination of care (as documented) at patient's floor/unit and/or counseling patient: Coding Level of Care Code 40664 SUB INP/OBS CARE 2/35MIN Diagnoses Sepsis without acute organ dysfunction, due to unspecified organism A41.9 Sepsis acute organ dysfunction status: without acute organ dysfunction Sepsis type: sepsis due to unspecified organism Obstructive sleep apnea syndrome G47.33 Sleep apnea type: obstructive Primary hypertension I10 Hypertension type: primary hypertension Acquired hypothyroidism E03.9 Hypothyroidism type: acquired (1) Sepsis Sepsis acute organ dysfunction status: without acute organ dysfunction Sepsis type: sepsis due to unspecified organism Qualified Code(s): A41.9 - Sepsis, unspecified organism (2) Sleep apnea Sleep apnea type: obstructive Qualified Code(s): G47.33 - Obstructive sleep apnea (adult) (pediatric) (3) HTN (hypertension) Hypertension type: primary hypertension Qualified Code(s): I10 - Essential (primary) hypertension (4) Hypothyroidism Hypothyroidism type: acquired Qualified Code(s): E03.9 - Hypothyroidism, unspecified
[2024-01-31] MEDS ORDERED: TRIAMTERENE/HCTZ 37.5/25MG TAB PO SCH (09:00)
--- NOTE | 2024-01-31 09:55 | Ultrasound Report ---
RENAL ULTRASOUND HISTORY: gram negative sepsis eval for anatomic changes COMPARISON: 12/06/2022 FINDINGS: Right kidney: 9.4 x 5.0 x 4.3 cm. No hydronephrosis. Normal corticomedullary differentiation and charles ical thickness. Left kidney: 9.2 x 4.7 x 5.7 cm. No hydronephrosis. Normal corticomedullary differentiation and corti carisa thickness. Bladder: Partial distention. The bilateral ureteral jets were identified. Hepatic steatosis incidentally noted. IMPRESSION: Normal renal ultrasound. ACT 112: Negative or not required by law. Electronically signed by: Joahnn Martínez M.D. 01/31/2024 9:54 AM
[2024-01-31] MEDS: cefTRIAXone SODIUM 2,000 MG/50 ML BAG IV SCH (11:26)
--- NOTE | 2024-02-01 08:03 | Hospitalist Progress Note ---
Date of Service February 01, 2024 Assessment & Plan (1) Sepsis: Plan: SIRS criteria with HR and WBC, suspected urinary source will need imaging to determine if anatomic abnormality. Temp 39.1C on admission, last temp 37.8C evening 01/29 and remaining afebrile (current temp borderline 37.4C). Procal 0.23. Lactic wnl at 1.4. gram negative bacteremia confirmed suspected to be E coli pcr Further discussion with patient reporting she has been feeling fatigued/tired for about a MONTH and sleeping ~11 hours with CPAP during this time and feeling whiped out. Had not had urinary symptoms but suspect could have had weakness/fatigue as her symptoms and longer standing nature of feeling like such and now with bacteremia Ceftriaxone 2gm IV daily continued Renal US without significant structural abn, no hydro/obstruction WBC 7.5k and normal. No further fevers since 01/29 Urine cx w/ pansensitive ecoli, same as blood cultures from 01/29 Repeat blood cultures today to ensure clearance Pharmacy spoke with ID, can label as uncomplicated bacteremia w/ urinary source and continue PO abx to complete 7 day course. Recs for Cipro vs Bactrim and pref bactrim for less side effects but discussed as resuming losartan today for BP control and on triamterene-HCTZ at baseline but without swelling will hold off resuming this for today and possibly resume tomorrow but will need to monitor potassium level on Bactrim and losartan/triamterene given risk for hyperkalemia Monitor labs/exam on repeat PT/OT consults while inpatient to ensure no needs (2) UTI (urinary tract infection): Plan: as above, remains on CTX IV daily and likely transition to Bactrim (or Cipro) to complete course pending repeat labs/renal function Renal US without abn as noted above (3) Sleep apnea: Plan: CPAP HS, encourage compliance (4) HTN (hypertension): Plan: Chronic, remains on amlodipine BP elevated this morning and BUN/Cr improved and stable with PO intake and resuming losartan as above Monitor to resume HCTZ-triamterene but does not have significant swelling and BP improved/stable with resumption losartan this morning to 124/71 at present and will monitor Diet changed from regular to AHA diet to decrease Na/swelling (5) Hypothyroidism: Plan: TSH wnl 1.32, remains on home dose synthroid (6) Hypomagnesemia: Plan: low on admission, replaced and wnl 2.1 on repeat Did resume PPI as takes OTC daily for reflux. Monitor mag w/ AM labs Plan Anxiety and depression - continue sertraline and BuSpar Hyperlipidemia - continue atorvastatin VTE prophylaxis - Lovenox 40 mg subcu daily while inpatient Dispo: continued inpatient stay but possible change to PO Bactrim tomorrow to complete 7 day course for uncomplicated bacteremia Admission and Anticipated Discharge Date Admission Date: January 30, 2024 Supervising Physician Co-Signing Physician Notes The patient was not seen by me. The chart was reviewed. Case discussed with CANDI Valentine. Agree with assessment and plan Subjective Evaluated this morning, sitting up in bed. Asked for something for reflux, takes esomeprazole over the counter at home, not new medication. Repeat blood cultures for this morning to ensure clearance and pharmacy to curbside ID about uncomplicated bacteremia and hopefully able to dc on PO abx to complete course if repeat cx negative. Upon further discussion given only one day of symptoms and patient does endorse that was a terrible day, but did report she had been feeling tired/exhausted for about a month. Actually noting that one trip to the bathroom overnight and slept for 11 hours following and suspect the fatigue/weakness were symptoms of start for UTI and could explain how became bacteremic. She notes no abdominal pain at present, moving her bowels. No blood. No fever/chills, chest pain or shortness of breath. Resumed losartan for BP but discussed holding off her diuretic. She does note she gets swelling at times as reason for taking but at present legs without significant edema and she reports they are looking good and will change regular diet to AHA to be cautious for salt intake while having on hold. Will consult PT given extreme fatigue/weakness prior to admission to ensure no needs at discharge, hopefully this weekend on oral abx. Questions/concerns addressed at this time. Physical Exam 2 Physical Exam: General: WD/WN female sitting up in bed, NAD Head atraumatic, normocephalic, mmm, trachea midline Resp: even/unlabored, no w/c/r , on room air CV: RRR, faint systolic murmur but no significant rub/gallop, NO LE edema, calves nontender, pulses present GI: +BS, soft/NT : no [place] MSK/Neuro: nonfocal, answering questions appropriately, not confused Psych: AOx3, cooperative with exam Results & Data Results & Data Vital Signs (Past 12 Hours) Vital Signs Temp Pulse Pulse Resp BP BP Pulse Ox 02/01/24 07:19 37.4 C 91 H 18 148/78 H 92 02/01/24 07:13 89 02/01/24 03:05 37.1 C 85 18 135/75 94 01/31/24 23:10 37.1 C 79 18 133/78 92 01/31/24 21:47 102 H O2 Del Method 02/01/24 07:19 Room Air 02/01/24 07:13 02/01/24 03:05 Room Air 01/31/24 23:10 Room Air 01/31/24 21:47 Laboratory Results 02/01/24 08:09 02/01/24 08:09 TB 0.4, AST 17, ALT 22, ALP 61 Repeat blood cultures pending Blood/urine cx w/ pansensitive ecoli from admission PG Care Time/CCT Total # of Minutes Spent Total Time Spent with Patient: Total time spent is greater than 50% in coordination of care (as documented) at patient's floor/unit and/or counseling patient: Coding Level of Care Code 80271 SUB INP/OBS CARE 3/50MIN Diagnoses Sepsis without acute organ dysfunction, due to unspecified organism A41.9 Sepsis acute organ dysfunction status: without acute organ dysfunction Sepsis type: sepsis due to unspecified organism Acute cystitis with hematuria N30.01 Hematuria presence: with hematuria Urinary tract infection type: acute cystitis Obstructive sleep apnea syndrome G47.33 Sleep apnea type: obstructive Primary hypertension I10 Hypertension type: primary hypertension Acquired hypothyroidism E03.9 Hypothyroidism type: acquired Hypomagnesemia E83.42 (1) Sepsis Sepsis acute organ dysfunction status: without acute organ dysfunction Sepsis type: sepsis due to unspecified organism Qualified Code(s): A41.9 - Sepsis, unspecified organism (2) UTI (urinary tract infection) Hematuria presence: with hematuria Urinary tract infection type: acute cystitis Qualified Code(s): N30.01 - Acute cystitis with hematuria (3) Sleep apnea Sleep apnea type: obstructive Qualified Code(s): G47.33 - Obstructive sleep apnea (adult) (pediatric) (4) HTN (hypertension) Hypertension type: primary hypertension Qualified Code(s): I10 - Essential (primary) hypertension (5) Hypothyroidism Hypothyroidism type: acquired Qualified Code(s): E03.9 - Hypothyroidism, unspecified
[2024-02-01 08:29] LABS: Basophils # (auto) 0.02 K/uL (0.00-0.20); Basophils % (auto) 0.3 %; Eosinophils # (auto) 0.13 K/uL (0.00-0.50); Eosinophils % (auto) 1.7 %; Hematocrit (blood only) 31.6 % (37.0-47.0); Hemoglobin 10.4 g/dl (12.0-16.0); Immature Granulocytes # (auto) 0.03 K/uL (0.01-0.20); Immature Granulocytes % (auto) 0.4 %; Lymphocytes # (auto) 1.17 K/uL (1.20-3.40); Lymphocytes % (auto) 15.5 %; Mean Corpuscular Hemoglobin 28.7 pg (25.0-34.0); Mean Corpuscular Hgb Conc 32.9 g/dL (32.0-36.0); Mean Corpuscular Volume 87.3 fL (80.0-100.0); Mean Platelet Volume 9.9 fL (9.4-12.4); Monocytes # (auto) 0.58 K/uL (0.11-0.59); Monocytes % (auto) 7.7 %; Neutrophils % (auto) 74.4 %; Platelet Count 123 K/uL (130-400); RDW Coefficient of Variation 13.7 % (11.5-14.5); RDW Standard Deviation 43.8 fL (36.4-46.3); Red Blood Count 3.62 M/uL (4.20-5.40); White Blood Count 7.53 K/ul (4.8-10.8)
[2024-02-01 08:45] LABS: Albumin Globulin Ratio 1.3 (0.9-2); Albumin Level 3.8 gm/dl (3.4-5.0); BUN Creatinine Ratio 22.1 (10-20); Bilirubin,Total 0.4 mg/dl (0.2-1.0); Calcium 9.2 mg/dl (8.6-10.3); Creatinine Clr Calc Pharmacy 53.9 ml/min; Globulin 2.9 gm/dl (2.5-4.0); Potassium 3.9 mmol/L (3.5-5.1); Total Protein 6.7 gm/dl (6.0-8.3)
[2024-02-01] MEDS: LOSARTAN POTASSIUM 50 MG TAB PO ONE (10:11)
[2024-02-01] MEDS ORDERED: ALUMINUM/MAGNESIUM SUSP 30 ML UDC PO PRN (10:32)
[2024-02-01] MEDS: FAMOTIDINE 20 MG TAB PO SCH (11:00)
[2024-02-01] MEDS: PANTOprazole 40 MG TAB PO SCH (11:11)
[2024-02-02 07:31] VITALS: RESP 18
[2024-02-02 07:38] LABS: BUN Creatinine Ratio 23.1 (10-20); Calcium 9.2 mg/dl (8.6-10.3); Magnesium 1.8 mg/dl (1.7-2.4); Potassium 4.2 mmol/L (3.5-5.1)
--- NOTE | 2024-02-02 07:52 | Hospitalist Progress Note ---
Date of Service February 02, 2024 Assessment & Plan (1) Sepsis: Plan: SIRS criteria with HR and WBC, suspected urinary source will need imaging to determine if anatomic abnormality. Temp 39.1C on admission, last temp 37.8C evening 01/29 and remaining afebrile (current temp borderline 37.4C). Procal 0.23. Lactic wnl at 1.4. gram negative bacteremia confirmed suspected to be E coli pcr Further discussion with patient reporting she has been feeling fatigued/tired fo r about a MONTH and sleeping ~11 hours with CPAP during this time and feeling whipped out. Had not had urinary symptoms but suspect could have had weakness/fatigue as her symptoms and longer standing nature of feeling like such and now with bacteremia Ceftriaxone 2gm IV daily continued Renal US without significant structural abn, no hydro/obstruction WBC 7.5k and normal. No further fevers since 01/29 Urine cx w/ pansensitive ecoli, same as blood cultures from 01/29 Repeat blood cultures today to ensure clearance Pharmacy spoke with ID, can label as uncomplicated bacteremia w/ urinary source and continue PO abx to complete 7 day course. Recs for Cipro vs Bactrim and pref bactrim for less side effects but discussed as resuming losartan today for BP control and on triamterene-HCTZ at baseline but without swelling will hold off resuming this for today and possibly resume tomorrow but will need to monitor potassium level on Bactrim and losartan/triamterene given risk for hyperkalemia Monitor labs/exam on repeat PT/OT consults while inpatient to ensure no needs 02/01 Switching Ceftriaxone IV (got 3 doses IV)-- > Bactrim PO to complete course, 7 days for uncomplicated bacteremia Blood cultures from 01/31 TD x 24 hours. Losartan resumed for BP control. BUN/Cr 25/1.08. -If keeping up with PO intake/swelling on exam would opt to resume her HCTZ and hold off the triamterene component for now given K 4.2 to prevent hyperkalemia w/ Bactrim use (2) UTI (urinary tract infection): Plan: as above, remains on CTX IV daily and likely transition to Bactrim (or Cipro) to complete course pending repeat labs/renal function Renal US without abn as noted above (3) Sleep apnea: Plan: CPAP HS, encourage compliance (4) HTN (hypertension): Plan: Chronic, remains on amlodipine BP elevated this morning and BUN/Cr improved and stable with PO intake and resuming losartan as above Monitor to resume HCTZ-triamterene but does not have significant swelling and BP improved/stable with resumption losartan this morning to 124/71 at present and will monitor Diet changed from regular to AHA diet to decrease Na/swelling (5) Hypothyroidism: Plan: TSH wnl 1.32, remains on home dose synthroid (6) Hypomagnesemia: Plan: low on admission, replaced and wnl 2.1 on repeat Did resume PPI as takes OTC daily for reflux. Monitor mag w/ AM labs Plan Anxiety and depression - continue sertraline and BuSpar Hyperlipidemia - continue atorvastatin VTE prophylaxis - Lovenox 40 mg subcu daily while inpatient Dispo: continued inpatient stay but possible change to PO Bactrim tomorrow to complete 7 day course for uncomplicated bacteremia Admission and Anticipated Discharge Date Admission Date: January 30, 2024 Results & Data Results & Data Vital Signs (Past 12 Hours) Vital Signs Temp Pulse Pulse Resp BP Pulse Ox O2 Del Method 02/02/24 07:30 37.3 C 77 18 150/77 H 95 Room Air 02/02/24 03:35 37.0 C 81 16 153/76 H 95 Room Air 02/01/24 23:39 37.0 C 78 16 133/76 95 Room Air 02/01/24 23:00 89 PG Care Time/CCT Total # of Minutes Spent Total Time Spent with Patient: Total time spent is greater than 50% in coordination of care (as documented) at patient's floor/unit and/or counseling patient: Coding Diagnoses Sepsis without acute organ dysfunction, due to unspecified organism A41.9 Sepsis acute organ dysfunction status: without acute organ dysfunction Sepsis type: sepsis due to unspecified organism Acute cystitis with hematuria N30.01 Hematuria presence: with hematuria Urinary tract infection type: acute cystitis Obstructive sleep apnea syndrome G47.33 Sleep apnea type: obstructive Primary hypertension I10 Hypertension type: primary hypertension Acquired hypothyroidism E03.9 Hypothyroidism type: acquired Hypomagnesemia E83.42 (1) Sepsis Sepsis acute organ dysfunction status: without acute organ dysfunction Sepsis type: sepsis due to unspecified organism Qualified Code(s): A41.9 - Sepsis, unspecified organism (2) UTI (urinary tract infection) Hematuria presence: with hematuria Urinary tract infection type: acute cystitis Qualified Code(s): N30.01 - Acute cystitis with hematuria (3) Sleep apnea Sleep apnea type: obstructive Qualified Code(s): G47.33 - Obstructive sleep apnea (adult) (pediatric) (4) HTN (hypertension) Hypertension type: primary hypertension Qualified Code(s): I10 - Essential (primary) hypertension (5) Hypothyroidism Hypothyroidism type: acquired Qualified Code(s): E03.9 - Hypothyroidism, unspecified
[2024-02-02] MEDS: LOSARTAN POTASSIUM 50 MG TAB PO SCH (08:35)
[2024-02-02] MEDS: MAGNESIUM OXIDE 400 MG TAB PO SCH (08:36)
[2024-02-02] MEDS: SULFAMETHOXAZOLE/TRIMETHOPRIM DS 800/160MG TAB PO SCH (08:36)
--- NOTE | 2024-02-02 12:17 | Discharge Summary ---
Discharge Summary Date of Service February 02, 2024 Principal Dx & Hospital Course #1 = Principal Diagnosis (1) Sepsis: SIRS criteria with HR and WBC, suspected urinary source will need imaging to determine if anatomic abnormality. Temp 39.1C on admission, last temp 37.8C evening 01/29 and remaining afebrile (current temp borderline 37.4C). Procal 0.23. Lactic wnl at 1.4. gram negative bacteremia confirmed suspected to be E coli pcr Further discussion with patient reporting she has been feeling fatigued/tired for about a MONTH and sleeping ~11 hours with CPAP during this time and feeling whipped out. Had not had urinary symptoms but suspect could have had weakness/fatigue as her symptoms and longer standing nature of feeling like such and now with bacteremia Ceftriaxone 2gm IV daily continued Renal US without significant structural abn, no hydro/obstruction WBC normalized on repeat and no further fevers since 01/29 Urine cx w/ pansensitive e. coli, same as blood cultures from 01/29 Repeat blood cultures 01/31 to ensure clearance and have been without growth x 24hours - pending at dc Discussed with pharmacy/[employer] workflow consultant and can treat as uncomplicated bacteremia and complete treatment with 7 day course, recs for Cipro vs Bactrim and pref for Bactrim given less side effects Did resume her losartan, K 4.2 on AM labs and given on triamterene-HTCZ for BP control and some edema at times (only with very trace edema on exam) and not appearing volume overload, decision to send for HCTZ 25mg to take as needed if BP elevated at home/swelling to prevent hyperkalemia and to follow up discussion with PCP about ongoing use of diuretics if not needing for heart failure to prevent worsening renal impairement when not keeping up with oral intake however has been eating/drinking without issue and feeling well/stable for discharge Switched Ceftriaxone IV--> Bactrim DS 1 tablet BID starting AM 105 and plan for total 7 day course. Has additional 3 days after this evenings dose to finish course. Outpatient follow up with PCP (2) Bacteremia: As above, bacteremia 2nd to urinary source. Ceftriaxone 2gm IV daily x 3 days provided and repeat blood cultures without growth/no further fevers and transitioned to Bactrim PO to complete 7 day course for uncomplicated bacteremia (3) UTI (urinary tract infection): as above Renal US without abn , completing course abx x 7 days as above (4) Sleep apnea: CPAP HS and encourage compliance (5) HTN (hypertension): Chronic, remains on amlodipine Losartan resumed for BP control with normalization of renal function and appearing hydrated/good PO intake but without significant LE edema and BP 126/74 and as discussed with patient to check BP at home/rx for HCTZ alone to prevent hyperkalemia on bactrim if needing given also on triamterene but patient should have follow up discussions with PCP prior to resuming BID dosing diuretic to prevent worsening renal impairement/dehydration if not having need for significant volume management (6) Hypothyroidism: TSH wnl 1.32, remained on home dose Synthroid (7) Hypomagnesemia: low on admission, replaced remained stable on repeat. Does take esomeprazole OTC at home, provided PPI while inpatient and remained stable following resumption at 1.8 Can consider daily PO supp while on PPI to prevent lows in follow up with PCP Other chronic medical conditions: Anxiety and depression - chronic/stable and continued sertraline and BuSpar Hyperlipidemia - continued atorvastatin VTE prophylaxis - Lovenox 40 mg subcu daily while inpatient Plan Dispo: discharge home on Bactrim PO to complete 7 day total course. F/u PCP about HCTZ-triamterene dosing and monitoring of BP at home. Notes For Next Care Provider Discussed with ID/pharmacy and uncomplicated bacteremia 2nd to urinary source. Suspect Ms Putnam's sx fatigue/weakness for several weeks was UTI leading to bacteremia on admission and ok to complete 7 day course abx with oral given pansensitive/uncomplicated. HCTZ-triamterene on HOLD and instructed patient to follow up discussions on BID dosing/possible reduction in dose to prevent dehydration/MELISSA --> did give rx for HCTZ by itself if needing for BP/weight gain/edema as needed to prevent issues with hyperkalemia while on Bactrim therapy but has been stable 126/74 on amlodipine/losartan and could have some of the trace LE edema from amlodipine and may need small dose HCTZ if needed but suspect possibly too much diuretic for Ms Lo Medication Changes From Visit Bactrim 1 tablet BID x 7 days (EOT 02/04) HCTZ-triamterene on HOLD, did give rx for HCTZ by itself if needing for BP/weight gain/edema as needed to prevent issues with hyperkalemia Admission HPI Per Admitting Provider Sabrina Putnam is a 68-year-old female who presents to the ER with fever, chills, fatigue and generalized weakness. Symptoms started all of a sudden last night although with hindsight she has been feeling more fatigued over the last month and needing to sleep during the day time. Initial symptoms last night with feeling freezing and needing 6 blankets and not able to fall asleep. Today she was hot and aching all over with bilateral generalized weakness with nausea but no vomiting. She called her daughter in law who brought her to the ER. Never had similar symptoms previously. No headache, neck stiffness or specific respiratory, gastrointestinal or urinary symptoms. She did not take her morning medications. Using her usual CPAP at night. Admission Exam Per Admitting Provider Constitutional: WD/WN, vitals as above Eyes: PERRL, conjunctivae normal, anicteric sclerae ENMT: Mouth: + dry oral mucous membranes Respiratory: normal respiratory effort, lungs clear to auscultation Cardiovascular: Rate/Rhythm: regular rhythm and + tachycardic Heart Sounds: + murmur (2/6 COURTNEY LUSB) Extremities: normal capillary refill; no calf tenderness and no pedal edema Gastrointestinal (Abdomen): normal bowel sounds, soft, nontender, no hepatosplenomegaly Skin: no rashes, warm and dry Neurologic: moves all extremities and awake; not confused Psychiatric: A+Ox3, euthymic affect Genitourinary: no CVA tenderness Discharge Exam General: WD/WN female sitting up in recliner, eating lunch, feels well, NAD, feels ready for discharge Head atraumatic, normocephalic, mmm, trachea midline Resp: even/unlabored, no w/c/r , on room air CV: RRR, + systolic murmur but no significant rub/gallop, trace pedal edema, calves nontender and pulses remain present, cap refill wnl GI: +BS, soft/NT : no larsen MSK/Neuro: nonfocal, answering questions appropriately, not confused Psych: AOx3, cooperative with exam Discharge Plan Discharge Items Patient Disposition: Home - Self-Care Reason For Visit: SEPSIS, UTI Discharge Diagnosis: Sepsis, Bacteremia due to urinary tract infection Goals: You have been hospitalized for an acute medical problem. During your stay at [facility], we have made an effort to correct the problem that brought you to the hospital while keeping you as comfortable as possible. Medications were used to bring your condition under control and your discharge instructions will include directions for any medications you should take after leaving the hospital. Please make sure you see your Primary Care Provider as part of your follow up plan. Activity: As commented below Non-emergency contact: Primary Care Provider Call non-emergency contact if: you have any medication questions, your symptoms worsen, your pain is worsening and you have a fever Follow-up/Referrals: Angelina Locke PA-C [Primary Care Provider] - Diet: Heart Healthy Addtl Attending Provider Instructions: You have been hospitalized for weakness and fatigue and found to have evidence for sepsis and positive bacteria in your blood which is likely from urinary tract infection that has been brewing for some time. Repeat blood cultures have been negative to date and case was discussed with pharmacy as well as infectious disease and this can be treated as uncomplicated bacteremia given quick clearance and sensitive to all testing of oral antibiotics. You were given 3 days of IV Ceftriaxone and are being discharged on BACTRIM to take twice daily for another 4 days. You got the dose this morning and tonight will complete day four and there will be another three days to complete total 7 days. You were given IV fluids, antibiotics as above. Medications with regards to your blood pressure were held for dehydration and blood pressure and have resumed your losartan with stable blood pressure however are continuing to HOLD your hydrochlorothiazide-triamterene which is a diuretic and your blood pressure has been good to prevent dehydration/worsening renal function. If your blood pressures are elevated at home or having swelling in your legs, I have sent in hydrochlorothiazide to take BY ITSELF while on the BACTRIM to prevent elevated potassium levels as discussed. I would recommend discussing with primary care about need to resume this medication twice a day if not needing for diuretics/swelling and may need a reduction in your dose. I did sent prescription for the esomeprazole for reflux that you take over the counter to see if able to be covered by your insurance. Please follow up with primary care in the next 7-10 days to monitor your progress after discharge/hospitalization. Please return to the ER with any fever/chills, chest pain, shortness of breath, abdominal pain, inability to keep up with oral hydration, or for any other symptoms concerning for you. It has been a pleasure being a part of the medical team providing for you while you have been in the hospital. Take care! Pending Studies at Discharge: Yes Studies:: Repeat blood cultures -- no growth to date after 24 hours Stand-Alone Forms: My [facility], Smoking Cessation Medications and DC Order Prescriptions: New sulfamethoxazole-trimethoprim [Bactrim DS] 800-160 mg Tablet 1 tab PO Q12H Qty: 7 0RF hydrochlorothiazide 25 mg tablet 25 mg PO DAILY PRN (Reason: weight gain/swelling/edema) Qty: 7 0RF esomeprazole magnesium 40 mg capsule,delayed release(DR/EC) 40 mg PO DAILY Qty: 30 0RF Continued multivitamin Tablet 1 tab PO QAM atorvastatin 20 mg Tablet 20 mg PO HS levothyroxine 50 mcg Tablet 50 mcg PO QAM losartan 100 mg Tablet 100 mg PO QAM amlodipine 5 mg tablet 5 mg PO DAILY meloxicam 7.5 mg tablet 7.5 mg PO DAILY buspirone 7.5 mg tablet 7.5 mg PO BID sertraline 50 mg tablet 50 mg PO DAILY Held triamterene-hydrochlorothiazid 37.5-25 mg capsule 1 cap PO BID Hold Instructions: Resume on 02/05/24. Discharge Orders: Discharge Order (Routine); Ordered 02/02/24 Ordered By: Radha Tineo Admission Data Admit Date/Time: 01/30/24 12:27 Attending Provider: José Miguel Emerson Admit Provider: Natalio Osuna Primary Care Provider: Angelina Locke Other Providers: Natalio Osuna Other Interventions: Discharge Summary Assessment (RN) Last Done: 02/02/24 14:12 Hospital Stay Data Consultations 01/30/24 11:29 ED Decision to Admit Stat Diagnostic Imagining Performed Chest X-Ray 01/30/24 09:38 XR chest 1V portable CLINICAL HISTORY: Sepsis. COMPARISON STUDY: No previous studies for comparison. FINDINGS: Lung volumes are normal. Lungs are clear. There is no pneumothorax or pleural effusion. Cardiac size is normal. Mediastinal contours are normal. There is no evidence for pulmonary edema. IMPRESSION: No acute cardiopulmonary findings. ACT 112: Negative or not required by law. Electronically signed by: Jonn Cazares M.D. 01/30/2024 10:21 AM Renal Ultrasound 01/31/24 08:39 RENAL ULTRASOUND HISTORY: gram negative sepsis eval for anatomic changes COMPARISON: 12/06/2022 FINDINGS: Right kidney: 9.4 x 5.0 x 4.3 cm. No hydronephrosis. Normal corticomedullary differentiation and cortical thickness. Left kidney: 9.2 x 4.7 x 5.7 cm. No hydronephrosis. Normal corticomedullary differentiation and cortical thickness. Bladder: Partial distention. The bilateral ureteral jets were identified. Hepatic steatosis incidentally noted. IMPRESSION: Normal renal ultrasound. ACT 112: Negative or not required by law. Electronically signed by: Johann Martínez M.D. 01/31/2024 9:54 AM Pending Results Patient Have Any Pending Studies at Discharge: Yes Discharge Instructions Given to Patient (Per Discharging Provider) You have been hospitalized for weakness and fatigue and found to have evidence for sepsis and positive bacteria in your blood which is likely from urinary tract infection that has been brewing for some time. Repeat blood cultures have been negative to date and case was discussed with pharmacy as well as infectious disease and this can be treated as uncomplicated bacteremia given quick clearance and sensitive to all testing of oral antibio tics. You were given 3 days of IV Ceftriaxone and are being discharged on BACTRIM to take twice daily for another 4 days. You got the dose this morning and tonight will complete day four and there will be another three days to complete total 7 days. You were given IV fluids, antibiotics as above. Medications with regards to your blood pressure were held for dehydration and blood pressure and have resumed your losartan with stable blood pressure however are continuing to HOLD your hydrochlorothiazide-triamterene which is a diuretic and your blood pressure has been good to prevent dehydration/worsening renal function. If your blood pressures are elevated at home or having swelling in your legs, I have sent in hydrochlorothiazide to take BY ITSELF while on the BACTRIM to prevent elevated potassium levels as discussed. I would recommend discussing with primary care about need to resume this medication twice a day if not needing for diuretics/swelling and may need a reduction in your dose. I did sent prescription for the esomeprazole for reflux that you take over the counter to see if able to be covered by your insurance. Please follow up with primary care in the next 7-10 days to monitor your progress after discharge/hospitalization. Please return to the ER with any fever/chills, chest pain, shortness of breath, abdominal pain, inability to keep up with oral hydration, or for any other symptoms concerning for you. It has been a pleasure being a part of the medical team providing for you while you have been in the hospital. Take care! Supervising Physician Co-Signing Physician Notes The patient was not seen by me. The chart was reviewed. Case discussed with CANDI Valentine. Agree with assessment and plan Total Time Total Time Spent Total Time Spent (In Minutes): 45 Coding Level of Care Code 37379 INP/OBS DISCH >30 MIN Diagnoses Sepsis without acute organ dysfunction, due to unspecified organism A41.9 Sepsis acute organ dysfunction status: without acute organ dysfunction Sepsis type: sepsis due to unspecified organism Bacteremia R78.81 Acute cystitis with hematuria N30.01 Hematuria presence: with hematuria Urinary tract infection type: acute cystitis Obstructive sleep apnea syndrome G47.33 Sleep apnea type: obstructive Primary hypertension I10 Hypertension type: primary hypertension Acquired hypothyroidism E03.9 Hypothyroidism type: acquired Hypomagnesemia E83.42
[2024-02-02 12:19] VITALS: PULSE 78; TEMP 99.5; O2SAT 96
[2024-02-02 14:13] VITALS: BP 124/71
== END 2024-02-02 15:26 | disposition home or self-care (01) | DRG 872 ==
LOC: ED 09:23 → 2S 12:27 → SUATTDRO 12:27 → 2S 15:16